=== PATIENT | female | born 1945 | race Caucasian/White ===

== ENCOUNTER → 2017-10-21 09:14 | Outpatient (CLI) | payer MEDICARE, OTHER, SELFPAY ==
--- NOTE | 2017-10-21 09:23 | CA_ITS ---
PROCEDURE: 2-D M-mode and color Doppler study INDICATIONS FOR THE TEST: Chest pain COPD Heart Murmur Tobacco Smoking Palpitations Fatigue Syncope Edema HypertensionXDiabetes Mellitus Rheumatic Fever SOBXDOE Obesity HyperlipidemiaX Family History HD Additional History AF PATIENT INFORMATION HEIGHT: 63 WEIGHT:144 GENDER: Female B/P:147/89 2-D/M-MODE INTERPRETATION: 2-D MEASUREMENTS OBSERVED VALUES IN CMS Right Ventricular Dimension (RVDd) 1.0 Interventricular Septum (Thickness)(IVsd) .8 Left Ventricular Internal Dimensions(LVIDd) 5.5 Left Ventricular Posterior Wall (Thickness)(LVPWd) .7 Aortic Root 4.2 Aortic Cusp Separation 2.0 Left Atrial Dimensions (LAD) 3.4 2D 1. Left atrium is mildly enlarged, left ventricle is normal size, there is no concentric left ventricular hypertrophy, visually estimated ejection fraction 55% with no obvious regional wall motion abnormality. 2. The right atrium and right ventricle are normal size and contractility. 3. The aortic valve is thickened and calcified leaflet continue to display good mobility. 4. The mitral and tricuspid valve leaflets are minimally thickened. 5. The pulmonic valve is poorly visualized. 6. No significant pericardial effusion noted. DOPPLER INTERROGATION: Doppler interrogation of the aortic, mitral and tricuspid valvular presence of mild aortic, mild mitral and tricuspid regurgitation, tricuspid and jet velocity insufficient for calculation of the right ventricular systolic pressure, grade 1 diastolic dysfunction seen without tissue Doppler evidence of raised left atrial pressure. CONCLUSION: 1. Mildly enlarged left atrium, normal left ventricular size, visually estimated ejection fraction 55% with no obvious regional wall motion abnormality, grade 1 diastolic dysfunction seen without tissue Doppler evidence of raised left atrial pressure. 2. Thickened and calcified aortic valve without aortic stenosis, mild aortic, mitral and tricuspid regurgitation. 3. No significant pericardial effusion noted.
== END ==
PROVIDERS: PCP Internal Medicine; Visit Provider Internal Medicine
DX: R06.02 Shortness of breath (principal)
CPT/HCPCS: 93306

== ENCOUNTER → 2019-01-15 13:29 | Outpatient (CLI) | payer MEDICARE, OTHER, SELFPAY ==
--- NOTE | 2019-01-15 13:32 | CA_ITS ---
PROCEDURE: 2-D M-mode and color Doppler study INDICATIONS FOR THE TEST: Chest pain COPD Heart Murmur Tobacco Smoking Palpitations Fatigue Syncope Edema Hypertension+Diabetes Mellitus Rheumatic Fever SOB+WALLS Obesity Hyperlipidemia+ Family History HD Additional History PATIENT INFORMATION HEIGHT: 63 WEIGHT:133 GENDER: Female B/P:124/83 2-D/M-MODE INTERPRETATION: 2-D MEASUREMENTS OBSERVED VALUES IN CMS Right Ventricular Dimension (RVDd) Interventricular Septum (Thickness)(IVsd) 1.1 Left Ventricular Internal Dimensions(LVIDd) 3.1 Left Ventricular Posterior Wall (Thickness)(LVPWd) 1.3 Aortic Root 3.8 Aortic Cusp Separation 2.1 Left Atrial Dimensions (LAD) 2.8 2D 1. Left atrium is mildly enlarged, left ventricle is normal size, mild concentric left ventricular hypertrophy, visually estimated ejection fraction 55% with no regional wall motion abnormality. 2. The right atrium and right ventricle are normal size and contractility. 3. The aortic valve is thickened and calcified leaflet continue to display mobility. The aortic root is mildly enlarged 4. The mitral and tricuspid valve leaflets are minimally thickened . 5. The pulmonic valve is poorly visualized. 6. No significant pericardial effusion noted. DOPPLER INTERROGATION: Doppler interrogation of the aortic, mitral and tricuspid valvular presence of moderate aortic, mild mitral and tricuspid regurgitation, tricuspid regurgitation jet velocity is inadequate for calculation of the right ventricular systolic pressure, grade 1 diastolic dysfunction seen without tissue Doppler evidence of raised left atrial pressure. CONCLUSION: 1. Mildly enlarged left atrium, normal left ventricular size, mild concentric left ventricular hypertrophy, visually estimated ejection fraction of 55% with no regional wall motion abnormality, grade 1 diastolic dysfunction seen without tissue Doppler evidence of raised left atrial pressure. 2. Moderate aortic, mild mitral and tricuspid regurgitation 3. No significant pericardial effusion noted.
== END ==
PROVIDERS: PCP Internal Medicine; Visit Provider Nurse Practitioner Family
DX: E78.5 Hyperlipidemia, unspecified (principal); I11.9 Hypertensive heart disease without heart failure; I34.0 Nonrheumatic mitral (valve) insufficiency; I35.1 Nonrheumatic aortic (valve) insufficiency; I45.10 Unspecified right bundle-branch block; I48.2 Chronic atrial fibrillation; R06.02 Shortness of breath
CPT/HCPCS: 93225; 93226; 93306

== ENCOUNTER → 2020-12-16 10:40 | Outpatient (CLI) | payer MEDICARE, OTHER, SELFPAY | PROVIDERS: PCP Internal Medicine; Visit Provider Urology | DX: E78.2 Mixed hyperlipidemia (principal); I10 Essential (primary) hypertension; I11.9 Hypertensive heart disease without heart failure; I35.1 Nonrheumatic aortic (valve) insufficiency; I48.0 Paroxysmal atrial fibrillation; R06.02 Shortness of breath | CPT/HCPCS: 93306 ==

== ENCOUNTER → 2022-01-21 10:48 | Outpatient (CLI) | payer MEDICARE, OTHER, SELFPAY ==
--- NOTE | 2022-01-21 10:49 | CA_ITS ---
APPROVED REPORT EXAM: Comprehensive 2D, Doppler, and color-flow Echocardiogram Outside Sales Inspector: Flores Tim, RCS, RVS Ht: 5 ft 4 in Wt: 133lbs BSA: 1.64 BP: 140/95 mmHg Indications: abn ekg, SOA, Palpitiaions, HTN, HLD, AI, MR Echo Enhancing Agent Comments: overriding Aorta 2D Dimensions LVDs 1.68 cm LA Volume 72.50 mL Aortic Root 0.00 cm LA Volume Index 44.20 mL/m2 (M/F) 16-34 Left Atrium 3.98 cm LVOT 1.91 cm (M/F) 1.5-2.5 Ascending Aorta 3.18 cm M-Mode Dimensions RVDd 0.95 cm (0.9-2.6) LA Diam 3.37 cm (1.9-4.0) LVDd 5.67 cm (3.5-5.7) Ao Diam 4.00 cm (2.0-3.7) LVDs 3.56 cm (3.5-5.7) IVSd 1.02 cm (0.6-1.1) PWd 0.95 cm (0.6-1.1) EF (Teich) 66.50% FS 37.20% EDV (Teich) 158.10 mL TAPSE 1.79 (<1.7) ESV (Teich) 53.00 mL LV Diastology E Decel Time 193.00 (160-240 msec) E/A Ratio 0.83 MED E' 5.80 (< 7 cm/sec) MED A' 7.80 cm/s E'/MED E' Ratio 13.31 (>14) LAT E' 8.60 (<10 cm/sec) LAT A' 8.20 cm/s E/LAT E' Ratio 8.98 (>14) Aortic Valve LVOT Max 104.00 (70-110 cm/s) LVOT VTI 24.11 cm AoV Peak Trent. 131.00 (50-130 cm/s) AI PHT 706.00 ms AO Peak GR. 6.90 mmHg AO Mean GR. 3.90 (<5 mmHg) AO VTI 29.77 (18-25 cm) DAVID (VTI) 2.32 (2.5-4.5 cm2) Mitral Valve MV A Velocity 93.00 (40-130 cm/s) E/A Ratio 0.83 MV Decel. Time 193.00 (160-240 ms) MV Mean Gr. 1.20 (<2mmHg) MV PHT 57.00 ms Pulmonary Valve PV Peak Velocity 60.00 (50-150 cm/s) Tricuspid Valve TR P. Velocity 222.00 cm/s RAP Estimate 10.00 mmHg RVSP 29.70 mmHg Left Ventricle Left atrium is mildly enlarged, left ventricle is normal size, mild concentric left ventricular hypertrophy, estimated ejection fraction 55% with no regional wall motion abnormality, grade 1 diastolic dysfunction seen without tissue Doppler evidence of raise left atrial pressure. Right Ventricle Right atrium and right ventricle are mildly enlarged with normal contractility. Aortic Valve Aortic valve is thickened and calcified without aortic stenosis, there is mild aortic insufficiency. Mitral Valve Mitral valve is minimally thickened, there is mild mitral regurgitation. Tricuspid Valve Tricuspid valve grossly normal, there is mild tricuspid regurgitation, tricuspid regurgitation jet velocity is inadequate for calculation of the right ventricular systolic pressure. Pulmonic Valve Pulmonic valve is poorly visualized. Great Vessels Aortic root is normal size. Inferior vena cava is normal size with normal inspiratory collapse. Pericardium No significant pericardial effusion noted. Conclusion 1. Mild biatrial enlargement, normal left ventricular size, mild concentric left ventricular hypertrophy, estimated ejection fraction 55% with no regional wall motion abnormality, grade 1 diastolic dysfunction seen without tissue Doppler evidence of raise left atrial pressure. 2. Mildly enlarged right ventricle with normal contractility. 3. Mild aortic, mild mitral and tricuspid regurgitation. 4. No significant pericardial effusion. 5. Inferior vena cava is poorly visualized. Electronically signed by : Emory Gabriel MD 01/22/2022 16:42:12
== END ==
PROVIDERS: PCP Internal Medicine; Visit Provider Physician Assistant
DX: I35.1 Nonrheumatic aortic (valve) insufficiency (principal)
CPT/HCPCS: 93306

== ENCOUNTER → 2022-01-25 10:03 | Outpatient (CLI) | payer MEDICARE, OTHER, SELFPAY ==
[2022-01-25 10:32] LABS: Basophils # 0.1 K/mm3 (0-0.2); Basophils % 1.3 % (0.1-2.0); Eosinophils # 0.1 K/mm3 (0.0-0.4); Eosinophils % 2.6 % (0.1-12.0); Hematocrit 43.6 % (37.0-47.0); Hemoglobin 14.1 g/dL (12.2-16.2); Lymphocytes # 1.5 K/mm3 (0.7-4.5); Lymphocytes % 29.5 % (10-50); Mean Corpuscular HGB Conc 32.3 g/dL (31.8-35.4); Mean Corpuscular Hemoglobin 35.8 pg (27.0-31.2); Mean Platelet Volume 9.6 fl (7.4-10.4); Monocytes # 0.4 K/mm3 (0.1-1.0); Monocytes % 7.3 % (1.7-9.3); Neutrophils # 2.9 K/mm3 (1.8-7.8); Neutrophils % 59.3 % (37.0-80.0); Platelet Count 182 K/mm3 (142-424); Red Blood Count 3.93 M/mm3 (4.20-5.40); Red Cell Distribution Width 14.8 % (11.5-17.5); White Blood Count 4.9 K/mm3 (4.8-10.8)
[2022-01-25 11:29] LABS: Alanine Aminotransferase 48 U/L (12-78); Alkaline Phosphatase 90 U/L (38-126); Anion Gap 16.7 mEq/L (5-15); Aspartate Amino Transferase 81 U/L (14-36); Bilirubin,Direct 0.2 mg/dl (0.0-0.4); Bilirubin,Indirect 0.5 mg/dL (0.0-0.9); Bilirubin,Total 0.7 mg/dl (0.2-1.3); Bilirubin,Unconjugated 0.5 mg/dL (0.0-1.1); Blood Urea Nitrogen 14 mg/dl (7-17); Carbon Dioxide 21 mmol/L (22.0-30.0); Chloride 103 mmol/L (98-107); Chol/HDL Ratio 1.9 (1-3.5); Cholesterol 187 mg/dl (140-200); Estimated Glomerular Filt Rate 97 ml/min (>60); GFR (African American) 117 ML/MIN (>60); Glucose 82 mg/dl (74-100); HDL Cholesterol 96 mg/dl (40-60); Potassium 3.7 mmoL/L (3.5-5.1); Sodium 137 mmol/L (136-145); Total Protein,Serum 6.3 g/dl (6.3-8.2); Triglycerides 94 mg/dl (30-150); VLDL Cholesterol 19 mg/dL (0-40)
[2022-01-25 11:39] LABS: Direct LDL Cholesterol 71.32 mg/dL (100-129)
[2022-01-25 11:45] LABS: Free T4 (Free Thyroxine) 1.08 ng/dl (0.78-2.19)
[2022-01-25 11:59] LABS: Thyroid Stimulating Hormone 7.27 uIU/mL (0.465-4.68)
[2022-02-01 00:14] LABS: 1,25 Dihydroxy Vitamin D 37 pg/mL (.); 1,25-Dihydroxy, Vitamin D-2 <10 pg/mL (.); 1,25-Dihydroxy, Vitamin D-3 37 pg/mL (.)
== END ==
PROVIDERS: Visit Provider Internal Medicine
DX: E78.2 Mixed hyperlipidemia (principal); I11.9 Hypertensive heart disease without heart failure; I35.1 Nonrheumatic aortic (valve) insufficiency; I48.0 Paroxysmal atrial fibrillation
CPT/HCPCS: 36415; 80048; 80061; 80076; 82652; 84439; 84443; 85025

== ENCOUNTER → 2023-02-02 12:48 | Outpatient (CLI) | payer MEDICARE, OTHER, SELFPAY ==
[2023-02-02 16:41] LABS: Basophils % 0.8 % (0.1-2.0); Eosinophils # 0.2 K/mm3 (0.0-0.4); Eosinophils % 3.8 % (0.1-12.0); Hematocrit 45.1 % (37.0-47.0); Hemoglobin 14.1 g/dL (12.2-16.2); Lymphocytes # 1.2 K/mm3 (0.7-4.5); Lymphocytes % 30.2 % (10-50); Mean Corpuscular HGB Conc 31.3 g/dL (31.8-35.4); Mean Corpuscular Hemoglobin 33.7 pg (27.0-31.2); Mean Corpuscular Volume 107.6 fl (81-99); Mean Platelet Volume 9.9 fl (7.4-10.4); Monocytes # 0.4 K/mm3 (0.1-1.0); Monocytes % 9.5 % (1.7-9.3); Neutrophils # 2.3 K/mm3 (1.8-7.8); Neutrophils % 55.7 % (37.0-80.0); Platelet Count 181 K/mm3 (142-424); Red Blood Count 4.19 M/mm3 (4.20-5.40); Red Cell Distribution Width 15.7 % (11.5-17.5)
[2023-02-02 16:50] LABS: Alanine Aminotransferase 81 U/L (12-78); Albumin Level 3.8 g/dl (3.5-5.0); Albumin/Globulin Ratio 1.6 (1.1-1.8); Alkaline Phosphatase 90 U/L (38-126); Aspartate Amino Transferase 130 U/L (14-36); Bilirubin,Total 0.6 mg/dl (0.2-1.3); Blood Urea Nitrogen 14 mg/dl (7-17); Calcium 8.6 mg/dl (8.4-10.2); Carbon Dioxide 27 mmol/L (22.0-30.0); Chloride 101 mmol/L (98-107); Chol/HDL Ratio 3.6 (1-3.5); Cholesterol 263 mg/dl (140-200); Estimated Glomerular Filt Rate 81 ml/min (>60); GFR (African American) 98 ML/MIN (>60); Globulin 2.4 g/dL (1.3-3.2); Glucose 73 mg/dl (74-100); HDL Cholesterol 74 mg/dl (40-60); Sodium 137 mmol/L (136-145); Total Protein,Serum 6.2 g/dl (6.3-8.2); Triglycerides 142 mg/dl (30-150); VLDL Cholesterol 28 mg/dL (0-40)
[2023-02-02 17:01] LABS: Direct LDL Cholesterol 164.99 mg/dL (100-129)
[2023-02-02 17:20] LABS: Thyroid Stimulating Hormone 6.43 uIU/mL (0.465-4.68)
[2023-02-04 18:44] LABS: Vitamin B12 255 pg/mL (239-931)
== END ==
PROVIDERS: PCP Internal Medicine; Visit Provider Internal Medicine
DX: I48.0 Paroxysmal atrial fibrillation (principal); I35.1 Nonrheumatic aortic (valve) insufficiency; E03.9 Hypothyroidism, unspecified; E78.5 Hyperlipidemia, unspecified; I10 Essential (primary) hypertension; M16.11 Unilateral primary osteoarthritis, right hip
CPT/HCPCS: 80053; 80061; 82607; 84443; 85025

== ENCOUNTER → 2023-02-14 07:10 | Outpatient (CLI) | payer MEDICARE, OTHER, SELFPAY | PROVIDERS: PCP Internal Medicine; Visit Provider Physician Assistant | DX: I11.9 Hypertensive heart disease without heart failure; I34.0 Nonrheumatic mitral (valve) insufficiency; I35.1 Nonrheumatic aortic (valve) insufficiency; I45.10 Unspecified right bundle-branch block; I48.0 Paroxysmal atrial fibrillation; R06.02 Shortness of breath; R42 Dizziness and giddiness | CPT/HCPCS: 78452; 93017; A9502; J2785 ==

== ENCOUNTER → 2023-08-08 14:36 | Outpatient (CLI) | payer MEDICARE, OTHER, SELFPAY ==
[2023-08-08 14:54] LABS: Reticulocyte % (Auto) 1.2 % (0.9-3.2)
[2023-08-08 15:27] LABS: Alanine Aminotransferase 61 U/L (12-78); Albumin Level 3.7 g/dl (3.5-5.0); Albumin/Globulin Ratio 1.4 (1.1-1.8); Alkaline Phosphatase 119 U/L (38-126); Anion Gap 19.7 mEq/L (5-15); Aspartate Amino Transferase 131 U/L (14-36); Bilirubin,Total 0.6 mg/dl (0.2-1.3); Blood Urea Nitrogen 10 mg/dl (7-17); Calcium 8.7 mg/dl (8.4-10.2); Carbon Dioxide 22 mmol/L (22.0-30.0); Chloride 103 mmol/L (98-107); Chol/HDL Ratio 2.3 (1-3.5); Cholesterol 190 mg/dl (140-200); Estimated Glomerular Filt Rate 81 ml/min (>60); GFR (African American) 98 ML/MIN (>60); Globulin 2.6 g/dL (1.3-3.2); Glucose 79 mg/dl (74-100); HDL Cholesterol 84 mg/dl (40-60); Potassium 3.7 mmoL/L (3.5-5.1); Sodium 141 mmol/L (136-145); Total Protein,Serum 6.3 g/dl (6.3-8.2); Triglycerides 101 mg/dl (30-150); VLDL Cholesterol 20 mg/dL (0-40)
[2023-08-08 15:38] LABS: Direct LDL Cholesterol 98.81 mg/dL (100-129)
[2023-08-08 16:32] LABS: Folate 3.87 ng/mL; Vitamin B12 768 pg/mL (239-931)
== END ==
PROVIDERS: PCP Internal Medicine; Visit Provider Internal Medicine
DX: I10 Essential (primary) hypertension (principal); I48.91 Unspecified atrial fibrillation; I34.0 Nonrheumatic mitral (valve) insufficiency; I35.1 Nonrheumatic aortic (valve) insufficiency; E78.5 Hyperlipidemia, unspecified
CPT/HCPCS: 80053; 80061; 82607; 82746; 85044

== ENCOUNTER 2024-02-07 09:43 | Outpatient (CLI) | payer MEDICARE, OTHER, SELFPAY ==
--- NOTE | 2024-02-07 10:00 | XR_ITS ---
FINAL REPORT CLINICAL HISTORY: NECK PAIN FINDINGS: CERVICAL SPINE Five views demonstrate no acute fracture. There is minimal spondylolisthesis of L4 on 5 with mild disc space narrowing at this level. The neural foramina are adequately patent. There is no malalignment. IMPRESSION: Degenerative change at L4-5. Reviewed, Interpreted and Dictated by Jacinto Palomares MD Transcribed by Meg Santana Authenticated and [facility]
== END 2024-02-07 23:59 | disposition home or self-care (01) ==
PROVIDERS: PCP Internal Medicine; Visit Provider Internal Medicine
DX: M54.2 Cervicalgia (principal); M43.6 Torticollis
CPT/HCPCS: 72050

== ENCOUNTER 2024-02-07 09:56 | Outpatient (CLI) | payer MEDICARE, OTHER, SELFPAY ==
[2024-02-07 10:27] LABS: Basophils % 0.9 % (0.1-2.0); Eosinophils # 0.2 K/mm3 (0.0-0.4); Hematocrit 44.5 % (37.0-47.0); Hemoglobin 14.5 g/dL (12.2-16.2); Lymphocytes # 1.2 K/mm3 (0.7-4.5); Lymphocytes % 27.4 % (10-50); Mean Corpuscular HGB Conc 32.6 g/dL (31.8-35.4); Mean Corpuscular Hemoglobin 35.4 pg (27.0-31.2); Mean Corpuscular Volume 108.5 fl (81-99); Mean Platelet Volume 10.1 fl (7.4-10.4); Monocytes # 0.3 K/mm3 (0.1-1.0); Neutrophils # 2.6 K/mm3 (1.8-7.8); Neutrophils % 60.7 % (37.0-80.0); Platelet Count 215 K/mm3 (142-424); Red Cell Distribution Width 15.1 % (11.5-17.5); White Blood Count 4.3 K/mm3 (4.8-10.8)
[2024-02-07 10:58] LABS: Alanine Aminotransferase 44 U/L (12-78); Albumin Level 3.4 g/dl (3.5-5.0); Albumin/Globulin Ratio 1.3 (1.1-1.8); Alkaline Phosphatase 123 U/L (38-126); Anion Gap 12.3 mEq/L (5-15); Aspartate Amino Transferase 112 U/L (14-36); Bilirubin,Total 0.8 mg/dl (0.2-1.3); Blood Urea Nitrogen 13 mg/dl (7-17); Calcium 8.9 mg/dl (8.4-10.2); Carbon Dioxide 26 mmol/L (22.0-30.0); Chloride 103 mmol/L (98-107); Chol/HDL Ratio 6.1 (1-3.5); Cholesterol 221 mg/dl (140-200); Estimated Glomerular Filt Rate 96 ml/min (>60); GFR (African American) 117 ML/MIN (>60); Globulin 2.6 g/dL (1.3-3.2); Glucose 90 mg/dl (74-100); HDL Cholesterol 36 mg/dl (40-60); Potassium 3.3 mmoL/L (3.5-5.1); Sodium 138 mmol/L (136-145); Triglycerides 172 mg/dl (30-150); VLDL Cholesterol 34 mg/dL (0-40)
[2024-02-07 11:02] LABS: Erythrocyte Sedimentation Rate 8 mm/hr (0-30)
[2024-02-07 11:09] LABS: Direct LDL Cholesterol 142.03 mg/dL (100-129)
[2024-02-07 11:28] LABS: Thyroid Stimulating Hormone 5.56 uIU/mL (0.465-4.68)
[2024-02-08 19:33] LABS: Vitamin B12 472 pg/mL (239-931)
== END 2024-02-07 23:59 | disposition home or self-care (01) ==
LOC: LAB.DROPOF 09:57
PROVIDERS: PCP Internal Medicine; Visit Provider Internal Medicine
DX: I48.91 Unspecified atrial fibrillation (principal); I34.0 Nonrheumatic mitral (valve) insufficiency; I35.1 Nonrheumatic aortic (valve) insufficiency; I10 Essential (primary) hypertension; E78.5 Hyperlipidemia, unspecified; E03.9 Hypothyroidism, unspecified; G43.809 Other migraine, not intractable, without status migrainosus; M54.2 Cervicalgia
CPT/HCPCS: 72050; 80053; 80061; 82607; 82746; 84443; 85025; 85651

== ENCOUNTER 2024-04-10 15:47 | Outpatient (CLI) | payer MEDICARE, OTHER, SELFPAY ==
--- NOTE | 2024-04-10 15:48 | MR_ITS ---
FINAL REPORT TECHNIQUE: Multiplanar MR without contrast CLINICAL HISTORY: Worsening cervicalgia. stiff neck. FINDINGS: There is mild chronic compression fracture of T3. There are abnormal signal changes of the odontoid process which are nonspecific. Differential considerations would include atypical hemangioma, marrow edema, or much less likely metastatic disease. CT correlation is recommended to better assess the bony structure. Limited images of the posterior fossa are unremarkable. Alignment is normal. Cervical spinal cord shows normal signal and contour. C2-3: Mild annular disc bulge. C3-4: Mild annular disc bulge. C4-5: Mild annular disc bulge. C5-6: Mild annular disc bulge. C6-7: Mild annular disc bulge. C7-T1: Minimal annular disc bulge. IMPRESSION: Abnormal signal changes of the odontoid process. Recommend CT correlation follow-up. Mild chronic T3 compression fracture. Mild diffuse degenerative changes. Reviewed, Interpreted and Dictated by Leandro Castillo MD Transcribed by Meg Santana Authenticated and . [facility]
== END 2024-04-10 23:59 | disposition home or self-care (01) ==
LOC: RAD 15:48
PROVIDERS: PCP Internal Medicine; Visit Provider Internal Medicine
DX: M54.2 Cervicalgia (principal); M62.838 Other muscle spasm
CPT/HCPCS: 72141

== ENCOUNTER 2024-04-18 06:40 | Outpatient (CLI) | payer MEDICARE, OTHER, SELFPAY ==
--- NOTE | 2024-04-18 06:44 | CT_ITS ---
FINAL REPORT CLINICAL HISTORY: Neck pain, abnormal dens on MRI COMPARISON: MRI dated 04/10/2024 FINDINGS: Axial CT images of the cervical spine were obtained without contrast. Sagittal and coronal reformatted images were also obtained. This study was performed with techniques to keep radiation doses as low as reasonably achievable (ALARA). Individualized dose reduction techniques using automated exposure control or adjustment of mA and/or kV according to the patient's size were employed. There is no evidence of fracture. The bony alignment is normal. There are mild to moderate degenerative changes with vacuum phenomenon at C4-5. There is a small erosion along the anterior border of the dens. Soft tissue surrounds the dens. This is nonspecific and can be seen with inflammatory arthritis or CPPD. There is no evidence of canal stenosis. Limited images of the upper thorax are unremarkable. IMPRESSION: Degenerative changes with no acute fracture. Small erosion along the anterior border of the dens with soft tissue surrounding the dens. This is nonspecific and can be seen with inflammatory arthritis or CPPD Reviewed, Interpreted and Dictated by Erick Chirinos III, MD Transcribed by Steph Yeager Authenticated and [facility]
--- NOTE | 2024-04-18 06:44 | CT_ITS ---
FINAL REPORT CLINICAL HISTORY: Lumbar back pain FINDINGS: Axial imaging of the lumbar spine was obtained without contrast. Sagittal and coronal reformatted images were also obtained and reviewed.This study was performed with techniques to keep radiation doses as low as reasonably achievable (ALARA). Individualized dose reduction techniques using automated exposure control or adjustment of mA and/or kV according to the patient's size were employed. There is a mild L2 superior endplate compression fracture of uncertain age. There is 30% loss of anterior height. Osteopenia is noted. There are mild degenerative changes. Multilevel disc bulges are noted. There is vacuum phenomenon at L5-S1. There is a large amount of retained stool in the colon, particularly the rectum, worrisome for fecal impaction. IMPRESSION: Age indeterminant L2 superior endplate compression fracture with approximately 30% loss of anterior height. If indicated, MRI may be beneficial. Degenerative changes in the lumbar spine. Findings worrisome for fecal impaction. Reviewed, Interpreted and Dictated by Erick Chirinos III, MD Transcribed by Steph Yeager Authenticated and [facility]
== END 2024-04-18 23:59 | disposition home or self-care (01) ==
LOC: RAD 06:40
PROVIDERS: PCP Internal Medicine; Visit Provider Internal Medicine
DX: M47.817 Spondylosis without myelopathy or radiculopathy, lumbosacral region (principal); M54.2 Cervicalgia; M62.838 Other muscle spasm
CPT/HCPCS: 72125; 72131

== ENCOUNTER 2024-05-15 14:54 | Emergency (ER) | payer MEDICARE, OTHER, SELFPAY ==
[2024-05-15 14:55] VITALS: BP 128/85; PULSE 69; RESP 16; TEMP 36.4; O2SAT 98; BMI 18.6
--- NOTE | 2024-05-15 15:27 | CT_ITS ---
FINAL REPORT TECHNIQUE: Axial images were obtained of the cervical spine by computed tomography. Coronal and sagittal reconstruction process performed. This study was performed with techniques to keep radiation doses as low as reasonably achievable (ALARA). Individualized dose reduction techniques using automated exposure control or adjustment of mA and/or kV according to the patient''s size were employed. CLINICAL HISTORY: fall COMPARISON: 04/18/2024 FINDINGS: No acute fracture is identified. There is moderately advanced disc space narrowing at C4-5 with grade 1 spondylolisthesis of C4 on 5. There is no significant disc bulge or protrusion. There is no malalignment. The facets are properly aligned. IMPRESSION: Moderately advanced changes of degenerative disc disease at C4-5 with grade 1 spondylolisthesis of C4 on 5. Findings are similar to previous. Reviewed, Interpreted and Dictated by Jacinto Palomares MD Transcribed by Meg Santana Authenticated and [facility]
--- NOTE | 2024-05-15 15:27 | CT_ITS ---
FINAL REPORT TECHNIQUE: Axial imaging of the head was obtained without contrast. This study was performed with techniques to keep radiation doses as low as reasonably achievable, (ALARA). Individualized dose reduction techniques using automated exposure control or adjustment of mA and/or kV according to the patient''s size were employed. CLINICAL HISTORY: fall FINDINGS: There is moderate atrophy. There are extensive changes of chronic microvascular ischemia. There is no evidence of hemorrhage. No masses are identified. No extra-axial fluid is seen. The paranasal sinuses are well aerated. There is no acute osseous abnormality. IMPRESSION: Atrophy and extensive changes of chronic microvascular ischemia. Reviewed, Interpreted and Dictated by Jacinto Palomares MD Transcribed by Meg Santana Authenticated and [facility]
--- NOTE | 2024-05-15 15:36 | ECG_ITS ---
APPROVED REPORT Exam: Resting ECG HR:65 bpm ECG Measurements Heart Rate 65 AXES QRSd 160 QRS -86 QT 479 T -1 QTc 491 Conclusion ATRIAL FIBRILLATION WITH ABERRANT CONDUCTION OR VENTRICULAR PREMATURE COMPLEXES LEFT AXIS DEVIATION [QRS AXIS < -30] RIGHT BUNDLE BRANCH BLOCK [120+ ms QRS DURATION, UPRIGHT V1, 40+ ms S IN I/aVL/V4/V5/V6] POSSIBLE ANTERIOR MYOCARDIAL INFARCTION , OF INDETERMINATE AGE [30 ms Q WAVE IN V3/V4, OR R < 0.2 mV IN V4] ABNORMAL ECG Electronically signed by : TRINA DONG, 05/15/2024 21:54:58
[2024-05-15 15:38] VITALS: BP 108/71; BP 109/67; BP 89/51; PULSE 60; PULSE 69; PULSE 88
[2024-05-15 15:39] LABS: Albumin Level 4.1 g/dl (3.5-5.0); Chloride 98 mmol/L (98-107)
--- NOTE | 2024-05-15 15:39 | ED_ITS ---
Discharge Plan Disposition Patient Disposition: Home, Self-Care Condition: Good Prescriptions Prescriptions: New levothyroxine 100 mcg capsule 100 mcg PO DAILY Qty: 30 2RF No Action aspirin [Adult Low Dose Aspirin] 81 mg tablet,delayed release (DR/EC) 81 mg PO QDAY rosuvastatin [Crestor] 20 mg tablet 20 mg PO ONCE Emgality Pen 120 mg/mL pen injector 120 mg SQ QMONTH levothyroxine 112 mcg tablet 112 mcg PO DAILY Patient Comments: TAKE 1 TABLET BY MOUTH ONCE DAILY flecainide 100 mg tablet 50 mg PO BID furosemide 20 mg tablet 20 mg PO DAILY PRN hydrocodone-acetaminophen 7.5-325 mg tablet 7.5 tab PO DAILY Patient Comments: TAKE 1 TABLET BY MOUTH EVERY 8 HOURS alprazolam [Xanax] 0.25 mg tablet 0.25 mg PO DAILY PRN hydrocodone-acetaminophen 5-325 mg tablet 1 tab PO Q8H PRN (Reason: pain) Qty: 14 0RF cyclobenzaprine 5 mg tablet 5 mg PO QHS PRN (Reason: muscle spasm) Qty: 30 1RF spironolactone 50 mg tablet See Rx Instructions .ROUTE .COMPLEX Qty: 90 0RF Dose Instruction: Take 1 tablet by mouth once daily Rx Instructions: Take 1 tablet by mouth once daily bisoprolol fumarate 10 mg tablet See Rx Instructions .ROUTE .COMPLEX Qty: 30 0RF Dose Instruction: Take 1 tablet by mouth once daily Rx Instructions: Take 1 tablet by mouth once daily hydrochlorothiazide 12.5 mg tablet 12.5 mg PO DAILY Qty: 90 1RF ezetimibe 10 mg tablet 10 mg PO DAILY Qty: 90 1RF famotidine 20 mg tablet 20 mg PO BID Qty: 180 1RF Referrals Follow up/Referrals: Almas Park MD [Primary Care Provider] - See instructions Activity Restrictions/Add. Instructions Additional Instructions/Restrictions: You were evaluated in the emergency department today. At this time, we feel your symptoms are likely related to medications. Please stop taking the hydrochlorothiazide at home your thyroid levels are too high today, so we are lowering your dose of levothyroxine. Please cigar packer and picker this new prescription and take daily. Make sure that you do not take your previous thyroid medication dosage with this. It is important to only take 1. Follow-up closely with your primary care provider over the next 24 to 48 hours for reassessment to make sure that you are still doing well. If you continue to have symptoms of lightheadedness with standing, general weakness, and fatigue, they may want to consider lowering the dosages of your heart rate medications, including flecainide and bisoprolol. Return to the emergency department right away for new or worsening symptoms. Clinical Impressions Clinical Impression: Factitious hyperthyroidism, Orthostatic hypotension, ZEINA (acute kidney injury), General weakness Instructions Patient Instructions: DI for Orthostatic Hypotension, DI for Hyperthyroidism, DI for Acute Kidney Injury Print Language Print Language: Venezuelan Discharge ED Provider: Betty Urrutia General Adult HPI General Chief complaint: Weakness Stated complaint: weakness, hyertension Time Seen by Provider: 05/15/24 15:07 Mode of Arrival: Wheelchair Source of Information: Patient Limitations: No Limitations Description of Symptoms (Recalled from ER Triage Doc. by RN): Patient reports having low blood pressure at home. States that she has been weak with balance issues as well. History of Present Illness HPI narrative: This patient is a 78-year-old female with a history of hypertension, hypertensive heart disease, mitral valve regurgitation, atrial fibrillation, aortic valve regurgitation, hyperlipidemia, and chronic neck and back pain presenting to the emergency department for evaluation with concern for lightheadedness, general weakness, and low blood pressures at home. Patient notes when she goes from sitting to standing or from lying to sitting, her blood pressure tanks and she feels very lightheaded. Her blood pressure was taken to physical therapy and was noted to be 70/30 by the physical therapist in the 90 systolic by her daughter, who is a nurse practitioner. Given this, they brought her in. Patient denies any recent illnesses aside from a urinary tract infection 3 weeks ago that she completed treatment for. She is been doing well since then. She does note that she was recently started on hydrochlorothiazide by an ER doctor because she had high blood pressures in the emergency department. This seems to have all started after starting the hydrochlorothiazide. She is also on flecainide and bisoprolol given her chronic history of hypertension and atrial fibrillation. She does report that she believes that her bisoprolol was increased. She was started on Xarelto for her atrial fibrillation, but family reports that she is not taking it Related Data Home Medications ?Medication ?Instructions ?Recorded ?Confirmed aspirin 81 mg tablet,delayed 81 mg PO QDAY 10/17/17 04/17/24 release (Adult Low Dose Aspirin) rosuvastatin 20 mg tablet (Crestor) 20 mg PO ONCE 10/17/17 04/17/24 galcanezumab-gnlm 120 mg/mL 120 mg SQ QMONTH 12/23/20 04/17/24 subcutaneous pen injector (Emgality Pen) alprazolam 0.25 mg tablet (Xanax) 0.25 mg PO DAILY PRN 01/24/23 04/17/24 flecainide 100 mg tablet 50 mg PO BID 02/28/23 04/17/24 levothyroxine 112 mcg tablet 112 mcg PO DAILY 02/28/23 04/17/24 furosemide 20 mg tablet 20 mg PO DAILY PRN 04/17/24 04/17/24 hydrocodone 7.5 mg-acetaminophen 7.5 tab PO DAILY 04/17/24 04/17/24 325 mg tablet Previous Rx's ?Medication ?Instructions ?Recorded spironolactone 50 mg tablet See Rx Instructions .Route 12/20/22 .COMPLEX #90 tabs bisoprolol fumarate 10 mg tablet See Rx Instructions .Route 03/27/24 .COMPLEX #30 tabs cyclobenzaprine 5 mg tablet 5 mg PO QHS PRN muscle spasm #30 04/03/24 tabs hydrocodone 5 mg-acetaminophen 325 1 tab PO Q8H PRN pain #14 tabs 04/03/24 mg tablet hydrochlorothiazide 12.5 mg tablet 12.5 mg PO DAILY #90 tabs 05/07/24 ezetimibe 10 mg tablet 10 mg PO DAILY #90 tabs 05/08/24 famotidine 20 mg tablet 20 mg PO BID #180 tabs 05/11/24 levothyroxine 100 mcg capsule 100 mcg PO DAILY #30 caps 05/15/24 Allergies Allergy/AdvReac Type Severity Reaction Status Date / Time morphine [MORPHINE] Allergy Mild HEART BEAT Verified 04/17/24 14:38 SLOWS PFSH PFSH Disclaimer: The information contained in this section may have been updated after the patient was seen, as this information can be updated by other users. Medical History HLD (hyperlipidemia) Right bundle branch block Aortic valve regurgitation Mitral valve regurgitation Hypertensive heart disease Afib Surgical History H/O total hysterectomy Hx of colonoscopy Family History Other Cancer Heart attack Social History Smoking Status: Never smoker alcohol intake: never substance use type: denies use current occupational status: retired Travel in the last 8 weeks: Inside the [place] ROS Obtained: Yes All systems reviewed & no additional complaints except as documented Physical Exam General General appearance: alert and in no apparent distress Head Head exam: atraumatic and normocephalic Eye Eye exam: Present normal appearance, PERRL and EOMI ENT ENT exam: Present normal exam, normal oropharynx, mucous membranes moist and normal external ear exam Neck Neck exam: Present normal inspection, full ROM and trachea midline; Absent tenderness Chest Chest inspection: Present normal inspection and symmetric chest wall rise; Absent tenderness Respiratory Respiratory exam: Present normal lung sounds bilaterally; Absent respiratory distress, wheezes, stridor or accessory muscle use Cardiovascular Cardiovascular exam: Present regular rate and normal rhythm Abdominal Exam Abdominal exam: Present soft; Absent distention, tenderness or guarding Extremities Exam Extremities exam: Present normal inspection, full ROM and normal capillary refill; Absent tenderness or edema Back Exam Back exam: Present normal inspection and full ROM; Absent tenderness Neurological Exam Neurological exam: Present alert, oriented X3, CN II-XII intact and normal gait; Absent motor sensory deficit Psychiatric Psychiatric exam: Present normal affect and normal mood Skin Skin exam: Present warm and dry Medical Decision Making Medical Records Medical records reviewed: Yes I reviewed the patient's medical records. Sandip Inquiry Pt receiving controlled substance: No Vital Signs: 05/15/24 14:55 05/15/24 15:38 05/15/24 17:38 Temperature 97.6 F Temperature Source Oral Pulse Rate Pulse Rate [Orthostatic Lying Left Radial] 69 64 Pulse Rate [Orthostatic Sitting Left Radial] 60 64 Pulse Rate [Orthostatic Standing Left Radial] 88 66 Pulse Rate [Radial] 69 Respiratory Rate 16 Blood Pressure Blood Pressure [Orthostatic Lying Left Arm] 109/67 L 101/70 L Blood Pressure [Orthostatic Sitting Left Arm] 108/71 L 129/80 Blood Pressure [Orthostatic Standing Left Arm] 89/51 L 140/81 Blood Pressure [Right Arm] 128/85 Blood Pressure Mean [Right Arm] 99 Blood Pressure Source [Right Arm] Automatic Cuff Blood Pressure Position [Right Arm] Sitting 02 Sat by Pulse Oximetry 98 Oxygen Delivery Method Room Air 05/15/24 18:00 05/15/24 18:30 05/15/24 18:46 Temperature 98.0 F Temperature Source Oral Pulse Rate 68 71 74 Pulse Rate [Orthostatic Lying Left Radial] Pulse Rate [Orthostatic Sitting Left Radial] Pulse Rate [Orthostatic Standing Left Radial] Pulse Rate [Radial] Respiratory Rate 20 Blood Pressure 133/83 151/86 H 157/84 H Blood Pressure [Orthostatic Lying Left Arm] Blood Pressure [Orthostatic Sitting Left Arm] Blood Pressure [Orthostatic Standing Left Arm] Blood Pressure [Right Arm] Blood Pressure Mean [Right Arm] Blood Pressure Source [Right Arm] Blood Pressure Position [Right Arm] 02 Sat by Pulse Oximetry 97 97 Oxygen Delivery Method Room Air Room Air Room Air Lab Data Lab results reviewed: Yes I reviewed the patient's lab results. Lab Results 05/15/24 15:10: WBC 7.1, RBC 4.31, Hgb 14.7, Hct 44.8, MCV 103.8 H, MCH 34.1 H, MCHC 32.8, RDW 15.3, Plt Count 186, MPV 10.0, Neut % (Auto) 71.7, Lymph % (Auto) 16.6, [place] % (Auto) 8.8, Eos % (Auto) 2.3, Baso % (Auto) 0.6, Neut # (Auto) 5.1, Lymph # (Auto) 1.2, [place] # (Auto) 0.6, Eos # (Auto) 0.2, Baso # (Auto) 0.0, S odium 134 L, Potassium 4.3, Chloride 98, Carbon Dioxide 27, Anion Gap 13.3, BUN 22 H, Creatinine 1.10 H, Estimated Creat Clear 31, Estimated GFR 48 L, Est GFR ( Amer) 58 L, Glucose 124 H, Calcium 9.8, Phosphorus 3.8, Magnesium 1.4 L , Total Bilirubin 0.7, AST 55 H, ALT 40, Alkaline Phosphatase 80, NT-Pro-B Natriuret Pep 962 H, Total Protein 7.0, Albumin 4.1, Globulin 2.9, Albumin/Globulin Ratio 1.4, TSH 0.19 L, Thyroxine (T4) 19.9 H 05/15/24 15:10 05/15/24 15:10 Orders (Tests/Meds): ED MEDICATIONS Discontinued Medications Generic Name Dose Route Start Last Admin Trade Name Adalid PRN Reason Stop Dose Admin Lactated Ringer's 1,000 mls @ 999 mls/hr 05/15/24 15:55 05/15/24 16:04 Lactated Ringer's 1000 Ml Bag IV 05/15/24 16:55 999 mls/hr .Q1H1M ONE Administration Magnesium Sulfate 2 gm in 50 mls @ 50 mls/hr 05/15/24 15:55 05/15/24 16:03 Magnesium Sulfate 2gm/50ml Premix IV 05/15/24 16:54 50 mls/hr ONCE ONE Administration Lactated Ringer's 1,000 mls @ 999 mls/hr 05/15/24 18:18 Lactated Ringer's 1000 Ml Bag IV 05/15/24 19:18 .Q1H1M ONE Sodium Chloride 10 ml 05/15/24 15:11 Sodium Chloride 0.9% 10ml Flush Syringe IV 06/14/24 15:10 NEEDED PRN Maintain IV Site ORDERS Category Date Time Status CT cervical spine wo con Stat Cat Scan 05/15/24 15:[address] head/brain wo con Stat Cat Scan 05/15/24 15:27 Taken BNP [NT Pro Brain Natriuretic Pep.] Stat Lab 05/15/24 15:10 Completed CBC w/Auto Diff [Complete Blood Count Auto Diff] Stat Lab 05/15/24 15:10 Completed CMP [Comprehensive Metabolic Panel] Stat Lab 05/15/24 15:10 Completed MAG [Magnesium] Stat Lab 05/15/24 15:10 Completed Phosphorous Stat Lab 05/15/24 15:10 Completed T4 (Thyroxine) Stat Lab 05/15/24 15:10 Completed TSH [Thyroid Stimulating Hormone] Stat Lab 05/15/24 15:10 Completed ECG Data Tracing #1: I reviewed this ECG and interpreted as documented below: Atrial fibrillation with ventricular rate of 65 bpm. Left axis deviation noted. Right bundle branch block noted. Interventricular conduction delay noted. PVC noted. No acute ST changes concerning for ischemia. ECG initial impression date: 05/15/24 ECG initial impression time: 15:38 Medical Decision Narrative: In summary, this patient is a 78-year-old female presenting to the Emergency Department for evaluation of general weakness, lightheadedness, and low blood pressure readings at home. Differential diagnoses considered include but are not limited to medication adverse reaction given that she was recently started on hydrochlorothiazide, dehydration, ZEINA, dysrhythmia, electrolyte derangements, orthostatic hypotension. Ruling out the most morbid conditions drove assessment. On exam, the patient is well-appearing and is sitting in bed in no acute distress with normal vital signs on cardiac telemetry at rest. She has no focal neurologic deficits on exam. Cardiopulmonary and abdominal exams are benign. Workup included CBC, CMP, magnesium, phosphorus, TSH, T4, BNP, urinalysis, and EKG. Patient then disclosed to me that she believes she had been told that she had a C-spine fracture in the past and also has had multiple falls over the last several weeks. Given this, ordered CT head and cervical spine. She has no complaints of pain elsewhere, so no other imaging ordered. Patient was given a bolus of IV fluids to assess for symptomatic improvement. Orthostatic vital signs were obtained that demonstrated orthostatic hypotension with hypotension noted upon standing. Systolic went from low 100s to high 80s. Labs demonstrated slight ZEINA with creatinine 1.1 from a baseline of 0.9 and mild hyponatremia. Daughter reports that she does not drink very well. She is also mildly hypomagnesemic. IV replacement ordered. 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 She reports that her thyroid medication was recently increased from 10 28-11 10, but she declines any changes in how she is been taking it. Given this, we will plan to decrease her thyroid medication to 100 mcg and have her follow-up very closely with primary care for reassessment. This could be playing a role in how she is been feeling, but I do not feel she requires admission for it at this time given that her exam and workup of otherwise been reassuring. I feel most of her issues are likely related to her medications, including her flecainide, metoprolol, and hydrochlorothiazide. I did advise that she stop taking her hydrochlorothiazide and follow-up closely with primary care for recommendations on what to do with her flecainide and bisoprolol, as they may need to be decreased. Patient did receive IV fluid resuscitation as well as IV magnesium, which significantly proved her blood pressures and she was no longer orthostatic on repeat evaluation. She is able to ambulate at her baseline without significant lightheadedness or presyncope. I had discussion with her regarding admission versus discharge, but she is feeling better and wants to go home. Given this, will plan to discharge the patient with close follow-up. She is given instructions to stop taking hydrochlorothiazide, I changed her dose of levothyroxine and explained this to her, and I advised that she follow-up very closely with regard to her bisoprolol and flecainide to make sure that they do not to be decreased. She was given instructions for hydration. She was given strict return precautions and was discharged after all questions were answered. Critical Care Critical Care Time Critical Care Time: No
[2024-05-15 15:40] LABS: Basophils % 0.6 % (0.1-2.0); Eosinophils # 0.2 K/mm3 (0.0-0.4); Eosinophils % 2.3 % (0.1-12.0); Hematocrit 44.8 % (37.0-47.0); Hemoglobin 14.7 g/dL (12.2-16.2); Lymphocytes # 1.2 K/mm3 (0.7-4.5); Lymphocytes % 16.6 % (10-50); Mean Corpuscular HGB Conc 32.8 g/dL (31.8-35.4); Mean Corpuscular Hemoglobin 34.1 pg (27.0-31.2); Mean Corpuscular Volume 103.8 fl (81-99); Monocytes # 0.6 K/mm3 (0.1-1.0); Monocytes % 8.8 % (1.7-9.3); Neutrophils # 5.1 K/mm3 (1.8-7.8); Neutrophils % 71.7 % (37.0-80.0); Platelet Count 186 K/mm3 (142-424); Potassium 4.3 mmoL/L (3.5-5.1); Red Blood Count 4.31 M/mm3 (4.20-5.40); Red Cell Distribution Width 15.3 % (11.5-17.5); Sodium 134 mmol/L (136-145); White Blood Count 7.1 K/mm3 (4.8-10.8)
[2024-05-15 15:42] LABS: Alanine Aminotransferase 40 U/L (12-78); Albumin/Globulin Ratio 1.4 (1.1-1.8); Alkaline Phosphatase 80 U/L (38-126); Anion Gap 13.3 mEq/L (5-15); Aspartate Amino Transferase 55 U/L (14-36); Bilirubin,Total 0.7 mg/dl (0.2-1.3); Blood Urea Nitrogen 22 mg/dl (7-17); Carbon Dioxide 27 mmol/L (22.0-30.0); Creatinine Clearance Estimated 31 mL/min (50-200); Estimated Glomerular Filt Rate 48 ml/min (>60); GFR (African American) 58 ML/MIN (>60); Globulin 2.9 g/dL (1.3-3.2)
[2024-05-15 15:43] LABS: Calcium 9.8 mg/dl (8.4-10.2); Glucose 124 mg/dl (74-100); Magnesium 1.4 mg/dl (1.6-2.3); Phosphorous 3.8 mg/dl (2.5-4.5)
[2024-05-15 15:52] LABS: NT Pro Brain Natriuretic Pep. 962 pg/mL (0-450)
[2024-05-15 16:00] LABS: T4 (Thyroxine) 19.9 ug/dl (5.53-11.0)
[2024-05-15] MEDS: MAGNESIUM SULFATE IN WATER 2 GM/50 ML PIGGYBACK IV (16:03)
[2024-05-15] MEDS: LACTATED RINGERS 1000ML 1,000 ML 999 ML IV (16:04)
[2024-05-15 16:13] LABS: Thyroid Stimulating Hormone 0.19 uIU/mL (0.465-4.68)
[2024-05-15 17:38] VITALS: BP 101/70; BP 129/80; BP 140/81; PULSE 64; PULSE 66
[2024-05-15 18:00] VITALS: BP 133/83; PULSE 68; O2SAT 97
[2024-05-15 18:30] VITALS: BP 151/86; PULSE 71; O2SAT 97
[2024-05-15 18:46] VITALS: BP 157/84; PULSE 74; RESP 20; TEMP 36.7; O2SAT 97
== END 2024-05-15 18:49 | disposition home or self-care (01) ==
PROVIDERS: Emergency Provider Emergency Medicine; PCP Internal Medicine
DX: I95.1 Orthostatic hypotension (principal); E83.42 Hypomagnesemia; E05.40 Thyrotoxicosis factitia without thyrotoxic crisis or storm; N17.9 Acute kidney failure, unspecified; I48.91 Unspecified atrial fibrillation; I49.3 Ventricular premature depolarization; I45.10 Unspecified right bundle-branch block; R53.1 Weakness; I10 Essential (primary) hypertension; E78.5 Hyperlipidemia, unspecified
CPT/HCPCS: 70450; 72125; 80053; 83735; 83880; 84100; 84436; 84443; 85025; 93005; 96361; 96365; 99285; J3475; J7120

== ENCOUNTER 2024-06-21 11:35 | Day surgery (SDC) | payer MEDICARE, OTHER, SELFPAY ==
[2024-06-19 15:42] VITALS: BMI 19.5
[2024-06-21] MEDS: LACTATED RINGERS 1000ML 1,000 ML 25 ML IV (12:06)
[2024-06-21 12:07] VITALS: BP 143/75; PULSE 78; RESP 18; TEMP 36.6; O2SAT 97
--- NOTE | 2024-06-21 12:53 | EXP.ANES.CKL ---
[facility] Disclaimer: The information contained in this section may have been updated after the patient was seen, as this information can be updated by other users. Medical History HLD (hyperlipidemia) Right bundle branch block Aortic valve regurgitation Mitral valve regurgitation Hypertensive heart disease Afib Surgical History H/O total hysterectomy Hx of colonoscopy Family History Other Cancer Heart attack Social History Smoking Status: Never smoker alcohol intake: never substance use type: denies use current occupational status: retired Travel in the last 8 weeks: None [facility] Anesthesia Checklist Patient Identification Patient Identification: Arm Band Structural Data Admitted From: Home Planned Operative Procedure/s: EGD Consent for Planned Operative Procedure(s) Verified: Yes Verified Documents: History and Physical NPO Status Verified Time NPO: 00:00 Additional verifications Anesthesia Reactions: No Airway Assessment Mallampati Score:: Class II C-Spine Mobility Assessed: Yes TMJ Mobility Assessed: Yes Dentition: Good Dentition Neurological Assessment Level of Consciousness: Awake, Alert and Appropriate Anesthesia Plan Anesthesia Risk discussed: Yes Anesthesia Plan: Verified ASA Class: III Anesthesia Type: MAC
[2024-06-21 12:56] VITALS: O2SAT 97
--- NOTE | 2024-06-21 13:11 | HMH.SCOPE ---
Procedure: Date: 06/21/24 Patient Date of :: 1945 Procedure Performed:: EGD and dilation Indications:: Chronic dysphaiga Performing Provider:: Radha Osman MD Referring Provider:: Almas Park MD Sedation:: Propofol Procedure:: The gastroscope was gently passed through the incisoral orifice into the oral cavity and under direct visualization the esophagus was intubated. The endoscope was passed down the esophagus, through the stomach, and into the duodenum. Color, texture, mucosa, and anatomy of the esophagus, stomach, and duodenum were carefully examined with the scope. Findings:: Oropharynx: normal Esophagus: normal, moderately tight schatzki's ring noted, dilated with 15-18 mm balloon dilator w/o problems EG Junction: intact at 40 cm, small hiatus hernia Cardia: normal Fundus: normal Body: normal Antrum: normal Duodenal bulb: normal Duodenum (second and third portion): normal Impression: Schatzki's ring treated with balloon dilation Hiatus hernia Recommendations:: Consider repeat dilation in about THREE years or so, sooner if clinically indicated Complications:: None Estimated blood obtained (mL): 0 Colonoscopy Component Colonoscopy Component Was a colonoscopy performed during today's procedure?: No
[2024-06-21 13:12] VITALS: BP 130/78; PULSE 76; RESP 16; O2SAT 96
[2024-06-21 13:22] VITALS: BP 103/67; PULSE 73; RESP 14; O2SAT 97
[2024-06-21 13:32] VITALS: BP 102/77; PULSE 75; RESP 16; O2SAT 97
[2024-06-21 13:42] VITALS: BP 105/69; PULSE 70; RESP 16; O2SAT 97
== END 2024-06-21 13:43 | disposition home or self-care (01) ==
PROVIDERS: PCP Internal Medicine; Visit Provider Internal Medicine Gastroenterology
PROC: 0DJ08ZZ Inspection of Upper Intestinal Tract, Via Natural or Artificial Opening Endoscopic (ICD-10-PCS; CPT 43235; principal; 2024-06-21 13:00)
DX: R13.10 Dysphagia, unspecified (principal); K22.2 Esophageal obstruction; K44.9 Diaphragmatic hernia without obstruction or gangrene
CPT/HCPCS: 43249; C1726; J7120

== ENCOUNTER 2024-10-18 21:12 | Emergency (ER) | payer MEDICARE, OTHER, SELFPAY ==
[2024-10-18 21:09] VITALS: BMI 19.5
[2024-10-18 21:12] VITALS: BP 169/88; PULSE 73; RESP 18; TEMP 36.8; O2SAT 95; BMI 19.5
--- NOTE | 2024-10-18 21:13 | ECG_ITS ---
APPROVED REPORT Exam: Resting ECG HR:70 bpm ECG Measurements Heart Rate 70 AXES AR 196 P 269 QRSd 137 QRS -78 QT 468 T -7 QTc 488 Conclusion ECTOPIC ATRIAL RHYTHM LEFT AXIS DEVIATION [QRS AXIS < -30] RIGHT BUNDLE BRANCH BLOCK [120+ ms QRS DURATION, UPRIGHT V1, 40+ ms S IN I/aVL/V4/V5/V6] ABNORMAL ECG UNCONFIRMED REPORT Electronically signed by : KARELY BARONE, 10/19/2024 06:51:03
[2024-10-18 21:22] LABS: Basophils % 0.3 % (0.1-2.0); Eosinophils # 0.3 K/mm3 (0.0-0.4); Eosinophils % 2.3 % (0.1-12.0); Hematocrit 41.8 % (37.0-47.0); Hemoglobin 14.3 g/dL (12.2-16.2); Lymphocytes # 2.4 K/mm3 (0.7-4.5); Lymphocytes % 19.9 % (10-50); Mean Corpuscular HGB Conc 34.2 g/dL (31.8-35.4); Mean Corpuscular Hemoglobin 33.5 pg (27.0-31.2); Mean Corpuscular Volume 97.9 fl (81-99); Mean Platelet Volume 13.9 fl (7.4-10.4); Monocytes # 1.6 K/mm3 (0.1-1.0); Monocytes % 13.6 % (1.7-9.3); Neutrophils # 7.6 K/mm3 (1.8-7.8); Neutrophils % 63.6 % (37.0-80.0); Platelet Count 151 K/mm3 (142-424); Red Blood Count 4.27 M/mm3 (4.20-5.40); Red Cell Distribution Width 13.6 % (11.5-17.5); White Blood Count 11.9 K/mm3 (4.8-10.8)
[2024-10-18] MEDS: LACTATED RINGERS 1000ML 1,000 ML 999 ML IV (21:25)
[2024-10-18 21:27] VITALS: BP 102/68; BP 121/78; BP 144/84; PULSE 70; PULSE 71; PULSE 78
[2024-10-18 21:40] LABS: Albumin Level 4.5 g/dl (3.5-5.0); Chloride 98 mmol/L (98-107); Potassium 3.9 mmoL/L (3.5-5.1); Sodium 137 mmol/L (136-145)
[2024-10-18 21:43] LABS: Alanine Aminotransferase 46 U/L (12-78); Albumin/Globulin Ratio 1.5 (1.1-1.8); Alkaline Phosphatase 83 U/L (38-126); Anion Gap 14.9 mEq/L (5-15); Aspartate Amino Transferase 96 U/L (14-36); Bilirubin,Total 1.6 mg/dl (0.2-1.3); Blood Urea Nitrogen 28 mg/dl (7-17); Calcium 9.3 mg/dl (8.4-10.2); Carbon Dioxide 28 mmol/L (22.0-30.0); Creatinine Clearance Estimated 21 mL/min (50-200); Estimated Glomerular Filt Rate 29 ml/min (>60); GFR (African American) 35 ML/MIN (>60); Globulin 3.1 g/dL (1.3-3.2); Glucose 92 mg/dl (74-100); Total Protein,Serum 7.6 g/dl (6.3-8.2)
[2024-10-18 21:57] LABS: Troponin I 0.04 ng/ml (0.00-0.034)
[2024-10-18 22:10] LABS: Microscopic, Urine URINE MICROSCOPIC (MICROSCOPIC)
[2024-10-18 22:14] LABS: Appearance,Urine CLEAR (Clear); Bilirubin,Urine Negative (Negative); Blood, Urine 1+ (Negative); Color,Urine YELLOW (Yellow); Glucose,Urine (UA) Negative (Negative); Ketones,Urine Negative (Negative); Leukocyte Esterase,Urine Negative (Negative); Nitrate,Urine Negative (Negative); Protein,Urine 2+ (Negative); Specific Gravity, Urine >= 1.030 (1.005-1.030)
--- NOTE | 2024-10-18 22:16 | XR_ITS ---
PROCEDURE INFORMATION: Exam: XR Chest Exam date and time: 10/18/2024 10:28 PM Age: 79 years old Clinical indication: Other: Near syncope TECHNIQUE: Imaging protocol: Radiologic exam of the chest. Views: 1 view. COMPARISON: CT CERVICAL SPINE WO CON 05/15/2024 3:53 PM FINDINGS: Lungs: Unremarkable. No consolidation. Pleural spaces: Unremarkable. No pleural effusion. No pneumothorax. Heart/Mediastinum: The heart is normal in size. Mediastinum appears prominent in size. Bones/joints: Unremarkable. IMPRESSION: Diffuse mediastinal prominence. This is likely accentuated by patient rotation and may represent normal vascular structures. However, correlation with a PA and lateral chest or CT chest is recommended.
[2024-10-18 22:33] LABS: Squamous Epithelial Cell,Urine 20-50 #/hpf (0-5); WBC,Urine TNTC #/hpf (0-3)
[2024-10-18 22:34] LABS: Bacteria,Urine 3+ /lpf
--- NOTE | 2024-10-18 22:45 | [facility].EDGENADL ---
Discharge Plan Disposition Patient Disposition: Home, Self-Care Prescriptions Prescriptions: New sulfamethoxazole-trimethoprim 800-160 mg tablet 1 tab PO BID 7 Days Qty: 14 0RF No Action aspirin [Adult Low Dose Aspirin] 81 mg tablet,delayed release (DR/EC) 81 mg PO QDAY Emgality Pen 120 mg/mL pen injector 120 mg SQ QMONTH flecainide 100 mg tablet 50 mg PO BID furosemide [Lasix] 20 mg tablet 20 mg PO DAILY PRN (Reason: Fluid) hydrocodone-acetaminophen 7.5-325 mg tablet 7.5 tab PO DAILY PRN (Reason: Pain) Patient Comments: TAKE 1 TABLET BY MOUTH EVERY 8 HOURS hydrochlorothiazide 12.5 mg tablet 12.5 mg PO DAILY PRN (Reason: swelling) naproxen 250 mg tablet 250 mg PO DAILY PRN (Reason: Pain) hydrocortisone 2.5 % cream with perineal applicator 1 applic topical DAILY PRN (Reason: Rash) levothyroxine 100 mcg tablet 100 mcg PO DAILY Rx Instructions: 1 tablet by mouth daily paroxetine HCl 20 mg tablet 20 mg PO ONCE Rx Instructions: 1 tablet by mouth every day alprazolam [Xanax] 0.25 mg tablet 0.25 mg PO DAILY PRN (Reason: Anxiety) cyclobenzaprine 5 mg tablet 5 mg PO QHS PRN (Reason: muscle spasm) Qty: 30 1RF spironolactone 50 mg tablet See Rx Instructions .ROUTE .COMPLEX Qty: 90 0RF Dose Instruction: Take 1 tablet by mouth once daily Rx Instructions: Take 1 tablet by mouth once daily ezetimibe 10 mg tablet 10 mg PO DAILY Qty: 90 1RF famotidine 20 mg tablet 20 mg PO BID Qty: 180 1RF bisoprolol fumarate 5 mg tablet 5 mg PO DAILY Qty: 90 1RF rosuvastatin 20 mg tablet 20 mg PO ONCE Qty: 90 1RF Referrals Follow up/Referrals: Al[place] Park MD [Primary Care Provider] - See instructions Activity Restrictions/Add. Instructions Additional Instructions/Restrictions: Please follow-up with your primary care provider. Please return to the emergency department if you develop any new or worsening symptoms or become concerned for your health. Please take antibiotics as prescribed for treatment of urinary tract infection. Clinical Impressions Clinical Impression: Pre-syncope, Orthostasis, Elevated serum creatinine, Aortic aneurysm, Acute UTI Fracture, ribs Qualifiers: Encounter type: sequela Fracture type: closed Laterality: left Qualified Code(s): S22.42XS - Multiple fractures of ribs, left side, sequela Print Language Print Language: Indonesian Discharge ED Provider: Rojelio Sykes General Adult HPI <David Gracia MD - Last Filed: 10/18/24 23:41> General Chief complaint: Weakness Stated complaint: weakness Time Seen by Provider: 10/18/24 21:24 Mode of Arrival: EMS Source of Information: Patient Limitations: No Limitations Description of Symptoms (Recalled from ER Triage Doc. by RN): Pt to ed via [facility] w c/o lightheadedness when standing History of Present Illness HPI narrative: Please note that above description of symptoms, in this electronic medical record under categorization of recalled from ER triage doctor by RN are reflective of an initial nursing assessment, however, is not reflective of my full history and physical exam that was personally taken and clarified. Consequentially, this preceding description of symptoms, which may include the patient's categorized chief complaint in the EMR, do not reflect my personal clinical impression, and the ultimate description of history of present illness and patient stated complaints should be deferred to this section of the note. Unless stated otherwise or congruent with this section of the note, additional signs, symptoms, or incongruence should be interpreted as inaccurate with my clinical impression. Related Data Home Medications ?Medication ?Instructions ?Recorded ?Confirmed aspirin 81 mg tablet,delayed 81 mg PO QDAY 10/17/17 10/18/24 release (Adult Low Dose Aspirin) galcanezumab-gnlm 120 mg/mL 120 mg SQ QMONTH 12/23/20 10/18/24 subcutaneous pen injector (Emgality Pen) alprazolam 0.25 mg tablet (Xanax) 0.25 mg PO DAILY PRN Anxiety 01/24/23 10/18/24 flecainide 100 mg tablet 50 mg PO BID 02/28/23 10/18/24 furosemide 20 mg tablet (Lasix) 20 mg PO DAILY PRN Fluid 04/17/24 10/18/24 hydrochlorothiazide 12.5 mg tablet 12.5 mg PO DAILY PRN swelling 09/05/24 10/18/24 hydrocodone 7.5 mg-acetaminophen 7.5 tab PO DAILY PRN Pain 09/05/24 10/18/24 325 mg tablet hydrocortisone 2.5 % topical cream 1 applic topical DAILY PRN Rash 09/05/24 10/18/24 with perineal applicator naproxen 250 mg tablet 250 mg PO DAILY PRN Pain 09/05/24 10/18/24 levothyroxine 100 mcg tablet 100 mcg PO DAILY 09/25/24 10/18/24 paroxetine HCl 20 mg tablet 20 mg PO ONCE 09/25/24 10/18/24 Previous Rx's ?Medication ?Instructions ?Recorded spironolactone 50 mg tablet See Rx Instructions .Route 12/20/22 .COMPLEX #90 tabs cyclobenzaprine 5 mg tablet 5 mg PO QHS PRN muscle spasm #30 04/03/24 tabs ezetimibe 10 mg tablet 10 mg PO DAILY #90 tabs 05/08/24 famotidine 20 mg tablet 20 mg PO BID #180 tabs 05/11/24 bisoprolol fumarate 5 mg tablet 5 mg PO DAILY #90 tabs 05/21/24 rosuvastatin 20 mg tablet 20 mg PO ONCE #90 tabs 05/21/24 sulfamethoxazole 800 1 tab PO BID 7 days #14 tabs 10/19/24 mg-trimethoprim 160 mg tablet Allergies Allergy/AdvReac Type Severity Reaction Status Date / Time morphine (MORPHINE) Allergy Mild HEART BEAT Verified 10/18/24 13:12 SLOWS [facility] <David Gracia MD - Last Filed: 10/18/24 23:41> PFS Disclaimer: The information contained in this section may have been updated after the patient was seen, as this information can be updated by other users. Medical History Hypertension Hypercholesteremia GERD (gastroesophageal reflux disease) Hypothyroidism Hx of deep venous thrombosis HLD (hyperlipidemia) Right bundle branch block Aortic valve regurgitation Mitral valve regurgitation Hypertensive heart disease Afib Surgical History H/O hemorrhoidectomy H/O esophagogastroduodenoscopy H/O total hysterectomy Hx of colonoscopy Family History Other Cancer Heart attack Social History Smoking Status: Never smoker alcohol intake: current alcohol intake frequency: holidays/special occasions only substance use type: denies use current occupational status: retired Travel in the last 8 weeks: None Have you lived/traveled outside [place] in past 30 days?: No Contact w/someone who lives/traveled outside [place] past 30 days?: No Exposure to someone with infectious disease in past 14 days?: No Do you have a fever (greater than 100.4 F or 38 C)?: No Have you tested positive for COVID-19: No Exposed to someone with COVID-19 in past 14 days?: No Do you have a sore throat?: No Do you have a cough?: No Do you have any weakness?: Yes Do you have any diarrhea?: No Are you experiencing any unusual bleeding?: No Do you have any muscle aches/pain?: No Do you have any abdominal pain?: No Are you experiencing loss of taste or smell?: No Other Medical History Have you received the Flu Vaccine for this season: No Have you received the Pneumonia Vaccine: Yes <David Gracia MD - Last Filed: 10/18/24 23:41> ROS Obtained: Yes All systems reviewed & no additional complaints except as documented Physical Exam <David Gracia MD - Last Filed: 10/18/24 23:41> General General appearance: alert Head Head exam: atraumatic and normocephalic Eye Eye exam: Present normal appearance, PERRL and EOMI Neck Neck exam: Present normal inspection, full ROM and trachea midline Respiratory Respiratory exam: Absent respiratory distress, wheezes, stridor, accessory muscle use or prolonged expiratory phase Cardiovascular Cardiovascular exam: Present other (Pulses equal symmetric in upper and lower extremities) Abdominal Exam Abdominal exam: Present soft; Absent distention, tenderness or pulsatile mass Extremities Exam Extremities exam: Absent edema Neurological Exam Neurological exam: Present alert, oriented X3 and CN II-XII intact; Absent motor sensory deficit Skin Skin exam: Present warm and dry; Absent diaphoresis or erythema Medical Decision Making <David Gracia MD - Last Filed: 10/18/24 23:41> Medical Records Medical records reviewed: Yes I reviewed the patient's medical records. Screening: Per USPSTF and CDC recommendations, given the prevalence of disease in our region, it is our hospital?s policy to screen for HIV and viral Hepatitis for all patients aged 18 and over and those with ongoing risk factors. Sandip Inquiry Pt receiving controlled substance: No Sandip was queried for this patient: No Vital Signs: 10/18/24 21:12 10/18/24 21:27 10/19/24 02:28 Temperature 98.2 F 98.2 F Temperature Source Oral Oral Pulse Rate 66 Pulse Rate [Apical] 73 Pulse Rate [Orthostatic Lying Right] 70 Pulse Rate [Orthostatic Sitting Right] 71 Pulse Rate [Orthostatic Standing Right] 78 Respiratory Rate 18 18 Blood Pressure 130/78 Blood Pressure [Orthostatic Lying Right Arm] 144/84 H Blood Pressure [Orthostatic Sitting Right Arm] 121/78 Blood Pressure [Orthostatic Standing Right Arm] 102/68 L Blood Pressure [Right Arm] 169/88 H Blood Pressure Mean [Right Arm] 115 Blood Pressure Source Automatic Cuff Blood Pressure Source [Right Arm] Automatic Cuff Blood Pressure Position Sitting Blood Pressure Position [Right Arm] Sitting 02 Sat by Pulse Oximetry 95 Oxygen Delivery Method Room Air Room Air Lab Data Lab Results 10/18/24 21:07: WBC 11.9 H, RBC 4.27, Hgb 14.3, Hct 41.8, MCV 97.9, MCH 33.5 H, MCHC 34.2, RDW 13.6, Plt Count 151, MPV 13.9 H, Neut % (Auto) 63.6, Lymph % (Auto) 19.9, Teller % (Auto) 13.6 H, Eos % (Auto) 2.3, Baso % (Auto) 0.3, Neut # (Auto) 7.6, Lymph # (Auto) 2.4, Teller # (Auto) 1.6 H, Eos # (Auto) 0.3, Baso # (Auto) 0.0, Sodium 137, Potassium 3.9, Chloride 98, Carbon Dioxide 28, Anion Gap 14.9, BUN 28 H, Creatinine 1.70 H, Estimated Creat Clear 21, Estimated GFR 29 L, Est GFR ( Amer) 35 L, Glucose 92, Calcium 9.3, Total Bilirubin 1.6 H, AST 96 H, ALT 46, Alkaline Phosphatase 83, Troponin I 0.04 H, Total Protein 7.6, Albumin 4.5, Globulin 3.1, Albumin/Globulin Ratio 1.5 10/18/24 22:05: Urine Color Yellow, Urine Appearance Clear, Urine pH 6.0, Ur Specific [place] >= 1.030, Urine Protein 2+ A, Urine Glucose (UA) Negative, Urine Ketones Negative, Urine Blood 1+ A, Urine Nitrate Negative, Urine Bilirubin Negative, Urine Urobilinogen 1.0, Ur Leukocyte Esterase Negative, Urine RBC 5-10, Urine WBC Tntc, Ur Squamous Epith Cells 20-50, Urine Bacteria 3+ 10/19/24 00:13: Troponin I 0.01 10/18/24 21:07 10/18/24 21:07 Orders (Tests/Meds): ED MEDICATIONS Discontinued Medications Generic Name Dose Route Start Last Admin Trade Name Freq PRN Reason Stop Dose Admin Ceftriaxone Sodium 1 gm 10/18/24 23:19 10/18/24 23:38 Ceftriaxone 1gm Vial IV 10/18/24 23:20 1 gm ONCE ONE Administration Lactated Ringer's 1,000 mls @ 999 mls/hr 10/18/24 21:24 10/18/24 21:25 Lactated Ringer's 1000 Ml Bag IV 10/18/24 22:24 999 mls/hr .Q1H1M ONE Administration Iopamidol 70 ml 10/19/24 01:22 10/19/24 01:23 Iopamidol-370 (76%);100ml Bottle IV 10/19/24 01:23 70 ml ONCE ONE Administration Sodium Chloride 50 ml 10/19/24 01:22 10/19/24 01:23 0.9 % Sodium Chloride 50 Ml Vial IV 10/19/24 01:23 50 ml ONCE ONE Administration Sodium Chloride 10 ml 10/19/24 01:22 10/19/24 01:24 Sodium Chloride 0.9% 10ml Syr (Rad Only) IV 11/18/24 01:21 10 ml NEEDED PRN Administration Maintain IV Site ORDERS Category Date Time Status CT angio chest PE protocol Stat Cat Scan 10/18/24 23:32 Completed CXR --portable [XR chest portable] Stat Exams 10/18/24 22:16 Completed Complete Blood Count Auto Diff Stat Lab 10/18/24 21:07 Completed Comprehensive Metabolic Panel Stat Lab 10/18/24 21:07 Completed Troponin I Q3H Lab 10/19/24 00:13 Completed Troponin I Stat Lab 10/18/24 21:07 Completed Urinalysis and Microscopic Stat Lab 10/18/24 22:05 Completed Urine Culture Stat Micro 10/18/24 22:05 Received Medical Decision Narrative: This is a 79-year-old female with history of hypertension, hyperlipidemia, paroxysmal A-fib on Eliquis presenting with syncopal episodes. Patient states that she has felt near syncope all day today. Has a history of dehydration, but only take as needed. States that she wanted diuretic, Aldactone. She had 2 near syncopal. Episodes today. EMS was called. Sugar was normal on arrival, patient was severely orthostatic. Given fluids on the way. On arrival, patient states that she is currently completely asymptomatic laying in bed. States that she was feeling lightheaded, tunnel vision, but did not have chest pain, palpitations, nausea, vomiting, and did not completely lose consciousness. History obtained the patient and EMS. On arrival, mildly hypotensive after settling in and nontachycardic. Saturating appropriately. Lungs are clear, cardiac exam normal. No lower extremity edema. Abdomen soft. She is grossly neurologically intact. Differential includes ACS, MN, pneumothorax, CHF, pneumonia, iatrogenic, among others. Patient placed on cardiac monitoring with initial blood pressure systolic 113/87, heart rate 73, O2 sat 95% on room air on continuous pulse oximetry. EKG performed and independently interpreted. Ectopic atrial rhythm with regular intervals. HI 196, QRS 137, QTc 488. No acute ischemic change. Independent TURP Tatian of workup with leukocytosis 11.9, but notably patient has an ZEINA with creatinine 1.7 up from normal baseline. Initial troponin elevated 0.04. Urinalysis with protein, blood, too numerous to count white cells and bacteria consistent with UTI. There are numerous squamous cells, but other findings are out of proportion for gross contamination. Chest x-ray independently interpreted abnormal soft tissue mass versus structure on the right hemithorax. Unable to determine what this is. On reevaluation, patient states that she feels much better, no longer currently having symptoms. I feel this is very likely all related to hypotension in the setting of spironolactone. It was recommended that she discontinue taking this and follow-up with her family doctor and she voiced her understanding. Conversation had with family regarding further imaging, they are agreeable to CT of the chest. This was ordered, prior to reevaluation, delta troponin, CT, care handed off to oncoming physician. Drug Enforcement Agent disclaimer Much of this encounter note is an electronic writer producer spoken language to printed text. Electronic writer producer of the spoken language may permit errors. Although I have reviewed the note, some errors may still exist. <Rojelio Sykes MD - Last Filed: 10/19/24 04:00> Vital Signs: 10/18/24 21:12 10/18/24 21:27 10/19/24 02:28 Temperature 98.2 F 98.2 F Temperature Source Oral Oral Pulse Rate 66 Pulse Rate [Apical] 73 Pulse Rate [Orthostatic Lying Right] 70 Pulse Rate [Orthostatic Sitting Right] 71 Pulse Rate [Orthostatic Standing Right] 78 Respiratory Rate 18 18 Blood Pressure 130/78 Blood Pressure [Orthostatic Lying Right Arm] 144/84 H Blood Pressure [Orthostatic Sitting Right Arm] 121/78 Blood Pressure [Orthostatic Standing Right Arm] 102/68 L Blood Pressure [Right Arm] 169/88 H Blood Pressure Mean [Right Arm] 115 Blood Pressure Source Automatic Cuff Blood Pressure Source [Right Arm] Automatic Cuff Blood Pressure Position Sitting Blood Pressure Position [Right Arm] Sitting 02 Sat by Pulse Oximetry 95 Oxygen Delivery Method Room Air Room Air Lab Data Lab Results 10/18/24 21:07: WBC 11.9 H, RBC 4.27, Hgb 14.3, Hct 41.8, MCV 97.9, MCH 33.5 H, MCHC 34.2, RDW 13.6, Plt Count 151, MPV 13.9 H, Neut % (Auto) 63.6, Lymph % (Auto) 19.9, Teller % (Auto) 13.6 H, Eos % (Auto) 2.3, Baso % (Auto) 0.3, Neut # (Auto) 7.6, Lymph # (Auto) 2.4, Teller # (Auto) 1.6 H, Eos # (Auto) 0.3, Baso # (Auto) 0.0, Sodium 137, Potassium 3.9, Chloride 98, Carbon Dioxide 28, Anion Gap 14.9, BUN 28 H, Creatinine 1.70 H, Estimated Creat Clear 21, Estimated GFR 29 L, Est GFR ( Amer) 35 L, Glucose 92, Calcium 9.3, Total Bilirubin 1.6 H, AST 96 H, ALT 46, Alkaline Phosphatase 83, Troponin I 0.04 H, Total Protein 7.6, Albumin 4.5, Globulin 3.1, Albumin/Globulin Ratio 1.5 10/18/24 22:05: Urine Color Yellow, Urine Appearance Clear, Urine pH 6.0, Ur Specific [place] >= 1.030, Urine Protein 2+ A, Urine Glucose (UA) Negative, Urine Ketones Negative, Urine Blood 1+ A, Urine Nitrate Negative, Urine Bilirubin Negative, Urine Urobilinogen 1.0, Ur Leukocyte Esterase Negative, Urine RBC 5-10, Urine WBC Tntc, Ur Squamous Epith Cells 20-50, Urine Bacteria 3+ 10/19/24 00:13: Troponin I 0.01 Orders (Tests/Meds): ED MEDICATIONS Discontinued Medications Generic Name Dose Route Start Last Admin Trade Name Freq PRN Reason Stop Dose Admin Ceftriaxone Sodium 1 gm 10/18/24 23:19 10/18/24 23:38 Ceftriaxone 1gm Vial IV 10/18/24 23:20 1 gm ONCE ONE Administration Lactated Ringer's 1,000 mls @ 999 mls/hr 10/18/24 21:24 10/18/24 21:25 Lactated Ringer's 1000 Ml Bag IV 10/18/24 22:24 999 mls/hr .Q1H1M ONE Administration Iopamidol 70 ml 10/19/24 01:22 10/19/24 01:23 Iopamidol-370 (76%);100ml Bottle IV 10/19/24 01:23 70 ml ONCE ONE Administration Sodium Chloride 50 ml 10/19/24 01:22 10/19/24 01:23 0.9 % Sodium Chloride 50 Ml Vial IV 10/19/24 01:23 50 ml ONCE ONE Administration Sodium Chloride 10 ml 10/19/24 01:22 10/19/24 01:24 Sodium Chloride 0.9% 10ml Syr (Rad Only) IV 11/18/24 01:21 10 ml NEEDED PRN Administration Maintain IV Site ORDERS Category Date Time Status CT angio chest PE protocol Stat Cat Scan 10/18/24 23:32 Completed CXR --portable [XR chest portable] Stat Exams 10/18/24 22:16 Completed Complete Blood Count Auto Diff Stat Lab 10/18/24 21:07 Completed Comprehensive Metabolic Panel Stat Lab 10/18/24 21:07 Completed Troponin I Q3H Lab 10/19/24 00:13 Completed Troponin I Stat Lab 10/18/24 21:07 Completed Urinalysis and Microscopic Stat Lab 10/18/24 22:05 Completed Urine Culture Stat Micro 10/18/24 22:05 Received Medical Decision Narrative: This is a 79-year-old female with history of hypertension, hyperlipidemia, paroxysmal A-fib on Eliquis presenting with syncopal episodes. Patient states that she has felt near syncope all day today. Has a history of dehydration, but only take as needed. States that she wanted diuretic, Aldactone. She had 2 near syncopal. Episodes today. EMS was called. Sugar was normal on arrival, patient was severely orthostatic. Given fluids on the way. On arrival, patient states that she is currently completely asymptomatic laying in bed. States that she was feeling lightheaded, tunnel vision, but did not have chest pain, palpitations, nausea, vomiting, and did not completely lose consciousness. History obtained the patient and EMS. On arrival, mildly hypotensive after settling in and nontachycardic. Saturating appropriately. Lungs are clear, cardiac exam normal. No lower extremity edema. Abdomen soft. She is grossly neurologically intact. Differential includes ACS, MN, pneumothorax, CHF, pneumonia, iatrogenic, among others. Patient placed on cardiac monitoring with initial blood pressure systolic 113/87, heart rate 73, O2 sat 95% on room air on continuous pulse oximetry. EKG performed and independently interpreted. Ectopic atrial rhythm with regular intervals. HI 196, QRS 137, QTc 488. No acute ischemic change. Independent TURP Tatian of workup with leukocytosis 11.9, but notably patient has an ZEINA with creatinine 1.7 up from normal baseline. Initial troponin elevated 0.04. Urinalysis with protein, blood, too numerous to count white cells and bacteria consistent with UTI. There are numerous squamous cells, but other findings are out of proportion for gross contamination. Chest x-ray independently interpreted abnormal soft tissue mass versus structure on the right hemithorax. Unable to determine what this is. On reevaluation, patient states that she feels much better, no longer currently having symptoms. I feel this is very likely all related to hypotension in the setting of spironolactone. It was recommended that she discontinue taking this and follow-up with her family doctor and she voiced her understanding. Conversation had with family regarding further imaging, they are agreeable to CT of the chest. This was ordered, prior to reevaluation, delta troponin, CT, care handed off to oncoming physician. Mony LARA: I assumed care of the patient at the time of handoff from the prior provider. On reassessment patient reports symptomatic improvement. Repeat troponin is undetectably low. CT of the chest shows dilated and tortuous aorta, no evidence of acute esophageal pathology, PE or other serious pathology. 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 I relayed these CT imaging findings to the family. I discharged the patient in stable condition with prescription for Bactrim for treatment of urinary tract infection. Return precautions given. Drug Enforcement Agent disclaimer Much of this encounter note is an electronic writer producer spoken language to printed text. Electronic writer producer of the spoken language may permit errors. Although I have reviewed the note, some errors may still exist. Critical Care <David Gracia MD - Last Filed: 10/18/24 23:41> Critical Care Time Critical Care Time: No
--- NOTE | 2024-10-18 23:32 | CT_ITS ---
PROCEDURE INFORMATION: Exam: CTA Chest With Contrast Exam date and time: 10/19/2024 1:15 AM Age: 79 years old Clinical indication: Other: Pre-syncope; Additional info: Pre-syncope, abnormal cxr TECHNIQUE: Imaging protocol: Computed tomographic angiography of the chest with contrast. Exam focused on the arteries. 3D rendering (Not supervised by radiologist): MIP and/or 3D reconstructed images were created by the technologist. Radiation optimization: All CT scans at this facility use at least one of these dose optimization techniques: automated exposure control; mA and/or kV adjustment per patient size (includes targeted exams where dose is matched to clinical indication); or iterative reconstruction. Contrast material: ISOVUE; Contrast volume: 70 ml; Contrast route: INTRAVENOUS (IV); COMPARISON: CR XR CHEST PORTABLE 10/18/2024 10:28 PM FINDINGS: Pulmonary arteries: Normal. No pulmonary emboli. Aorta: There is tortuosity and moderate dilation of the thoracic aorta accounting for mediastinal prominence seen on recent chest radiograph. Ascending aorta measures maximum diameter 3.8 cm. No evidence of aortic dissection. Lungs: Unremarkable. No consolidation. No masses. Pleural spaces: Unremarkable. No pneumothorax. No pleural effusion. Heart: Unremarkable. No cardiomegaly. No pericardial effusion. Lymph nodes: Unremarkable. No enlarged lymph nodes. Bones/joints: L2 compression fracture again noted, as described on CT of 04/18/2024. Nonacute ununited nonsegmental fractures involve the lateral aspect of the left 3rd, 4th and 6th ribs. Nondisplaced, nonacute segmental fracture involves the lateral left 5th rib. No definite acute fracture. Mild multilevel degenerative disc changes throughout the thoracic spine. Soft tissues: Unremarkable. IMPRESSION: 1. Dilation and tortuosity of the thoracic aorta accounts for mediastinal prominence on recent chest radiograph. No acute aortic pathology evident 2. Nonacute appearing fractures in the left ribcage and of the L2 vertebra as described.
[2024-10-18] MEDS: cefTRIAXone 1GM VIAL 1 GM IV (23:38)
[2024-10-19 01:16] LABS: Troponin I 0.01 ng/ml (0.00-0.034)
[2024-10-19] MEDS: 0.9 % SODIUM CHLORIDE 50 ML VIAL IV (01:23)
[2024-10-19] MEDS: IOPAMIDOL-370 (76%);100ML BOTTLE 70 ML IV (01:23)
[2024-10-19] MEDS: SODIUM CHLORIDE 0.9% 10ML SYR (RAD ONLY) 10 ML IV (01:24)
[2024-10-19 02:28] VITALS: BP 130/78; PULSE 66; RESP 18; TEMP 36.8; O2SAT 96
== END 2024-10-19 02:31 | disposition home or self-care (01) ==
PROVIDERS: Emergency Medicine; Emergency Provider Emergency Medicine; PCP Internal Medicine
DX: I71.9 Aortic aneurysm of unspecified site, without rupture (principal); N39.0 Urinary tract infection, site not specified; I95.1 Orthostatic hypotension; R79.89 Other specified abnormal findings of blood chemistry; R53.1 Weakness; R42 Dizziness and giddiness; S22.42XA Multiple fractures of ribs, left side, initial encounter for closed fracture
CPT/HCPCS: 71045; 71275; 80053; 81001; 84484; 85025; 87086; 93005; 96361; 96374; 99285; J0696; J7120; Q9967

== ENCOUNTER 2024-11-15 06:02 | Day surgery (SDC) | payer MEDICARE, OTHER, SELFPAY ==
[2024-10-24 11:44] VITALS: BMI 19.5
[2024-11-13 13:35] VITALS: BMI 19.1
[2024-11-15] VITALS (7 sets, daily range): BP systolic 92–165; BP diastolic 56–87; PULSE 65–70; RESP 18–20; TEMP 36.4; O2SAT 93–100
[2024-11-15] MEDS: LACTATED RINGERS 1000ML 1,000 ML 50 ML IV (06:18)
--- NOTE | 2024-11-15 07:18 | EXP.ANES.CKL ---
[facility] Disclaimer: The information contained in this section may have been updated after the patient was seen, as this information can be updated by other users. Medical History Hypertension Hypercholesteremia GERD (gastroesophageal reflux disease) Hypothyroidism Hx of deep venous thrombosis HLD (hyperlipidemia) Right bundle branch block Aortic valve regurgitation Mitral valve regurgitation Hypertensive heart disease Afib Surgical History H/O hemorrhoidectomy H/O esophagogastroduodenoscopy H/O total hysterectomy Hx of colonoscopy Family History Other Cancer Heart attack Social History Smoking Status: Never smoker alcohol intake: current alcohol intake frequency: holidays/special occasions only substance use type: denies use current occupational status: retired Travel in the last 8 weeks: None Have you lived/traveled outside US in past 30 days?: No Contact w/someone who lives/traveled outside US past 30 days?: No Exposure to someone with infectious disease in past 14 days?: No Do you have a fever (greater than 100.4 F or 38 C)?: No Have you tested positive for COVID-19: No Exposed to someone with COVID-19 in past 14 days?: No Do you have a sore throat?: No Do you have a cough?: No Do you have any weakness?: No Are you experiencing any nausea/vomitting?: No Do you have any diarrhea?: No Are you experiencing any unusual bleeding?: No Do you have any muscle aches/pain?: No Do you have any abdominal pain?: No Are you experiencing loss of taste or smell?: No [facility] Anesthesia Checklist Patient Identification Patient Identification: Verbal (Name & ) Structural Data Admitted From: Home Planned Operative Procedure/s: egd Consent for Planned Operative Procedure(s) Verified: Yes NPO Status Verified Time NPO: 00:00 Additional verifications Anesthesia Reactions: No Airway Assessment Mallampati Score:: Class II C-Spine Mobility Assessed: Yes TMJ Mobility Assessed: Yes Dentition: Good Dentition Neurological Assessment Level of Consciousness: Awake, Alert and Appropriate Anesthesia Plan Anesthesia Risk discussed: Yes Anesthesia Plan: Verified ASA Class: II Anesthesia Type: MAC
--- NOTE | 2024-11-15 07:35 | EXP.HP ---
History of Present Illness *Admission Date: 11/15/24 *Reason for visit:: Dysphagia *History of present illness: Mrs. Santos is an 79-year-old female who is here for dysphagia and weight loss. She also has some odynophagia. The examination is deemed medically necessary for diagnostic/therapeutic EGD. The patient has been seen, interviewed and examined prior to the procedure by both myself and the anesthesia provider. [facility] Disclaimer: The information contained in this section may have been updated after the patient was seen, as this information can be updated by other users. Medical History Hypertension Hypercholesteremia GERD (gastroesophageal reflux disease) Hypothyroidism Hx of deep venous thrombosis HLD (hyperlipidemia) Right bundle branch block Aortic valve regurgitation Mitral valve regurgitation Hypertensive heart disease Afib Surgical History H/O hemorrhoidectomy H/O esophagogastroduodenoscopy H/O total hysterectomy Hx of colonoscopy Family History Other Cancer Heart attack Social History Smoking Status: Never smoker alcohol intake: current alcohol intake frequency: holidays/special occasions only substance use type: denies use current occupational status: retired Travel in the last 8 weeks: None Have you lived/traveled outside US in past 30 days?: No Contact w/someone who lives/traveled outside US past 30 days?: No Exposure to someone with infectious disease in past 14 days?: No Do you have a fever (greater than 100.4 F or 38 C)?: No Have you tested positive for COVID-19: No Exposed to someone with COVID-19 in past 14 days?: No Do you have a sore throat?: No Do you have a cough?: No Do you have any weakness?: No Are you experiencing any nausea/vomitting?: No Do you have any diarrhea?: No Are you experiencing any unusual bleeding?: No Do you have any muscle aches/pain?: No Do you have any abdominal pain?: No Are you experiencing loss of taste or smell?: No Other Medical History Have you received the Flu Vaccine for this season: No Have you received the Pneumonia Vaccine: Yes Review of Systems Review of Systems Review of systems (narrative): Negative *Cardiovascular Comments: Negative *Gastrointestinal Comments: Negative *Genitourinary Comments: Negative *Musculoskeletal Comments: Negative *Neurologic Comments: Negative Meds Home Medications and Allergies Home Medications ?Medication ?Instructions ?Recorded ?Confirmed ?Type aspirin 81 mg tablet,delayed 81 mg PO QDAY 10/17/17 11/15/24 History release (Adult Low Dose Aspirin) galcanezumab-gnlm 120 mg/mL 120 mg SQ QMONTH 12/23/20 11/15/24 History subcutaneous pen injector (Emgality Pen) spironolactone 50 mg tablet See Rx Instructions .Route 12/20/22 11/15/24 Rx .COMPLEX #90 tabs alprazolam 0.25 mg tablet (Xanax) 0.25 mg PO DAILY PRN Anxiety 01/24/23 11/15/24 History flecainide 100 mg tablet 50 mg PO BID 02/28/23 11/15/24 History cyclobenzaprine 5 mg tablet 5 mg PO QHS PRN muscle spasm #30 04/03/24 11/15/24 Rx tabs furosemide 20 mg tablet (Lasix) 20 mg PO DAILY PRN Fluid 04/17/24 11/15/24 History ezetimibe 10 mg tablet 10 mg PO DAILY #90 tabs 05/08/24 11/15/24 Rx famotidine 20 mg tablet 20 mg PO BID #180 tabs 05/11/24 11/15/24 Rx bisoprolol fumarate 5 mg tablet 5 mg PO DAILY #90 tabs 05/21/24 11/15/24 Rx rosuvastatin 20 mg tablet 20 mg PO ONCE #90 tabs 05/21/24 11/15/24 Rx hydrochlorothiazide 12.5 mg tablet 12.5 mg PO DAILY PRN swelling 09/05/24 11/15/24 History hydrocortisone 2.5 % topical cream 1 applic topical DAILY PRN Rash 09/05/24 11/15/24 History with perineal applicator naproxen 250 mg tablet 250 mg PO DAILY PRN Pain 09/05/24 11/15/24 History levothyroxine 100 mcg tablet 100 mcg PO DAILY 09/25/24 11/15/24 History paroxetine HCl 20 mg tablet 20 mg PO ONCE 09/25/24 11/15/24 History hydrocodone 7.5 mg-acetaminophen 7.5 tab PO BID PRN Pain #20 tabs 11/08/24 11/15/24 Rx 325 mg tablet New Prescriptions to Start Prescriptions: Allergies Allergy/AdvReac Type Severity Reaction Status Date / Time morphine (MORPHINE) Allergy Mild HEART BEAT Verified 11/13/24 13:15 SLOWS Exam Data for Last 24 hours Vital signs and Labs for Last 24 Hours: Temp Pulse Resp BP Pulse Ox O2 Del Method 97.6 F 70 18 165/87 H 95 Room Air 11/15/24 06:20 11/15/24 06:20 11/15/24 06:20 11/15/24 06:20 11/15/24 06:20 11/15/24 06:20 I & O for Last 24 hours: Intake & Output 11/12/24 11/13/24 11/14/24 11/15/24 23:59 23:59 23:59 23:59 Weight 108 lb *Routine HEENT Exam Head: Present normocephalic Eye: Present EOMI and PERRL ENT: Present mucous membranes moist *Routine Neck Exam Neck: Present supple *Routine Respiratory Exam Respiratory: Present CTA bilaterally *Routine Cardiovascular Exam Cardiovascular: Present RRR *Routine Abdominal Exam Abdominal: Present soft and normoactive bowel sounds; Absent tenderness *Routine Rectal Exam Rectal:: deferred *Routine Genitalia Exam Genitalia:: deferred *Routine Extremities Exam Extremities: Absent cyanosis, clubbing or edema *Routine Skin Exam Skin: Present warm; Absent rash *Routine Neurological Exam Neurological: Present alert and oriented X3 Assessment and Plan *Assessment and plan (1) Dysphagia: Status: Acute Category: Medical Code(s): R13.10 - Dysphagia, unspecified (2) Odynophagia: Status: Acute Category: Medical Code(s): R13.10 - Dysphagia, unspecified (3) Schatzki's ring: Status: Acute Category: Medical Code(s): K22.2 - Esophageal obstruction (4) Weight loss: Status: Acute Category: Medical Code(s): R63.4 - Abnormal weight loss Plan A/P: 1. Dysphagia with some odontophagia and known Schatzki's ring with some weight loss is the preprocedural diagnosis. The patient will be anesthetized/sedated using MAC sedation. The patient has been seen and examined. Cardiac and lung assessment prior to the examination is stable. Proceed with planned diagnostic EGD/therapeutic
--- NOTE | 2024-11-15 07:37 | P.PCN_ITS ---
[facility] Procedure Note Date: 11/15/24 Time: 07:56 Procedure Note:: Upper Endoscopy Procedure Report: Esophagogastroduodenoscopy with cold biopsies and TTS balloon dilation Endoscopost: Benny Maher II, MD Referring Physician: Almas Park MD Date of Procedure: November 15, 2024 Equipment: Olympus GIF 190 standard upper endoscope Sedation: MAC sedation Indications: Mrs. Santos is an 79-year-old female with dysphagia who is here for diagnostic/therapeutic upper endoscopy. Over the last couple of years, she has lost a lot of weight and more than 20 pounds. The patient did have an EGD with Radha Osman MD on June 21, 2024. She was found to have a Schatzki's ring that was dilated up to 18 mm with a TTS hydrostatic balloon. The patient did have a small hiatal hernia. The patient had improvement for about a month but has had recurrence of her swallowing difficulty. She sometimes will have some painful swallowing/odynophagia. This occurs primarily with solid foods and large tablets but can occur with liquids. The patient does have some chronic constipation for which she takes MiraLAX as needed. This can lead to liquid stools. She also has a lot of bloating and some belching with hiccups. She reports tickling in her throat and some globus sensation. She reports no significant heartburn or reflux. Procedure: Prior to the procedure, a history and physical exam was performed, and patient's medications and allergies were reviewed. The risks, benefits and alternatives of the sedation and procedure were discussed with the patient. All questions were answered and informed consent was obtained. The patient was brought to the procedure room. Patient identification and proposed procedure were verified by the physician and the nurse. The patient was placed in a left lateral decubitus position and the scope was passed under direct vision. Throughout the procedure, the patient's blood pressure, pulse, and oxygen saturations were monitored continuously. The upper GI endoscopy was accomplished without difficulty. The patient tolerated the procedure well. Findings: The scope was passed directly into the upper esophagus and advanced to the third portion of the duodenum. The post bulbar duodenum and duodenal bulb were normal with normal mucosa and conniventes. The scope was withdrawn through a normal duodenal bulb and pylorus into the stomach. There was some mild linear gastropathy of the prepyloric antrum. Biopsies were obtained. The body and fundus of the stomach were normal with some mild proximal atrophy. Upon retroflexion there was a 2 cm hiatal hernia. The scope was then withdrawn into the esophagus. There was a distal fibrotic ring. There appeared to be some mucosal fibrosis throughout the esophagus with some mild stenosis. There was a proximal esophageal web. Biopsies were taken from the distal and proximal esophagus to rule out eosinophilic or lymphocytic esophagitis. The distal fibrotic ring was approximately 7 to 8 mm diameter and this was dilated to 18 mm with a TTS hydrostatic balloon. The entire esophagus was dilated. There was shattering of the distal ring. There was some resistance at the cricopharyngeus. Impression: 1. Distal fibrotic ring (originally 7 to 8 mm diameter)?dilated to 18 mm 2. 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 Mild esophageal mucosal fibrosis and mild stenosis?biopsies taken to rule out eosinophilic or lymphocytic esophagitis 4. Small 2 cm hiatal hernia 5. Mild antral gastropathy Plan: I will follow-up the biopsies. The patient should have clinical improvement with dilation. I would encourage her to continue the MiraLAX with bulking fiber (Citrucel).
== END 2024-11-15 09:02 | disposition home or self-care (01) ==
PROVIDERS: PCP Internal Medicine; Visit Provider Internal Medicine Gastroenterology
PROC: 0DJ08ZZ Inspection of Upper Intestinal Tract, Via Natural or Artificial Opening Endoscopic (ICD-10-PCS; CPT 43239; principal; 2024-11-15 07:30)
DX: R13.10 Dysphagia, unspecified (principal); K22.2 Esophageal obstruction; R63.4 Abnormal weight loss; K31.9 Disease of stomach and duodenum, unspecified; K44.9 Diaphragmatic hernia without obstruction or gangrene; Q39.4 Esophageal web
CPT/HCPCS: 43239; 43249; C1726; J7120

== ENCOUNTER 2024-12-21 14:07 | Outpatient (CLI) | payer MEDICARE, OTHER, SELFPAY ==
--- NOTE | 2024-12-21 14:15 | CA_ITS ---
APPROVED REPORT EXAM: Comprehensive 2D, Doppler, and color-flow Echocardiogram Blackjack Pit Boss: Natalia Brown RVT Ht: 5 ft 3 in Wt: 115lbs BSA: 1.53 BP: 178/113 mmHg Indications: A-FIB,MURMUR,SOA,HTN,HLD,RBBB TDS 2D Dimensions IVSd 1.10 cm F: 0.6-1.0 LVEF (Visual) 56.30 % PWd 1.16 cm F: 0.6 - 1.0 LA Volume 38.60 mL LVDd 3.55 cm F: 3.9 - 5.3 LA Volume Index 25.23 mL/m2 (M/F) 16-34 LVDs 2.53 cm F: 2.2 - 3.5 M-Mode Dimensions LA Diam 3.28 cm (1.9-4.0) TAPSE 1.41 (<1.7) LV Diastology E Decel Time 287 (160-240 msec) E/A Ratio 0.8 Aortic Valve DAVID Index 2.19 cm2/m2 AoV Peak Trent. 148.0 (50-130 cm/s) AI PHT 1159.00 ms AO Peak GR. 8.80 mmHg AO Mean GR. 4.80 (<5 mmHg) AO VTI 33.7 (18-25 cm) DAVID (VTI) 3.44 (2.5-4.5 cm2) Mitral Valve MV E Max Trent. 72.0 (40-130 cm/s) MV A Velocity 95.0 (40-130 cm/s) E/A Ratio 0.76 MV PHT 84.0 ms Pulmonary Valve PV Peak Velocity 54.0 (50-150 cm/s) Tricuspid Valve TR P. Velocity 316.00 cm/s RAP Estimate 10.00 mmHg RVSP 50.10 mmHg Left Ventricle The left ventricle is normal size. The left ventricular systolic function is normal. The left ventricular ejection fraction is within the normal range. Proximal septal thickening is noted. There is normal LV segmental wall motion. Transmitral Doppler flow pattern suggests impaired LV relaxation. LVEF is 55%. Right Ventricle The right ventricle is normal size. The right ventricular systolic function is normal. Atria Left atrium is moderately dilated. Right atrium is mildly dilated. There is no Doppler evidence of interatrial shunt. Aortic Valve The aortic valve is mildly thickened. Moderate aortic regurgitation. There is no aortic valvular stenosis. Mitral Valve The mitral valve leaflets are mildly thickened. Mild mitral regurgitation. No evidence of mitral valve stenosis. Tricuspid Valve The tricuspid valve leaflets are thin and pliable. Mild tricuspid regurgitation. RVSP is 40 mmHg + RA pressure. Pulmonic Valve The pulmonary valve is normal in structure. Trace pulmonic regurgitation. Great Vessels The aortic root is normal in size. The IVC is not well-visualized. Pericardium There is no pericardial effusion. Other Information Study Quality: Technically Difficult Conclusion Technically difficult study due to poor acoustic windows. Normal biventricular systolic function. Biatrial dilation. Moderate AI. Mild MR, mild TR. Elevated RVSP 40 mmHg + RA pressure. Electronically signed by : Dionna Tomlinson MD 12/31/2024 12:24:48
== END 2024-12-21 23:59 | disposition home or self-care (01) ==
LOC: RT 14:07
PROVIDERS: PCP Internal Medicine; Visit Provider Physician Assistant
DX: I35.1 Nonrheumatic aortic (valve) insufficiency (principal); I34.0 Nonrheumatic mitral (valve) insufficiency; I48.0 Paroxysmal atrial fibrillation
CPT/HCPCS: 93306

== ENCOUNTER 2025-03-12 12:20 | Outpatient (CLI) | payer MEDICARE, OTHER, SELFPAY ==
[2025-03-12 16:15] LABS: Blood Urea Nitrogen 16 mg/dl (7-17); Calcium 9.1 mg/dl (8.4-10.2); Carbon Dioxide 29 mmol/L (22.0-30.0); Chloride 107 mmol/L (98-107); Estimated Glomerular Filt Rate 60 ml/min (>60); GFR (African American) 73 ML/MIN (>60); Glucose 74 mg/dl (74-100); Sodium 142 mmol/L (136-145)
[2025-03-12 16:40] LABS: Thyroid Stimulating Hormone 0.68 uIU/mL (0.465-4.68)
== END 2025-03-12 23:59 | disposition home or self-care (01) ==
LOC: LAB.DROPOF 03-13 14:05
PROVIDERS: PCP Internal Medicine; Visit Provider Internal Medicine
DX: E03.9 Hypothyroidism, unspecified (principal); I10 Essential (primary) hypertension
CPT/HCPCS: 80048; 84443

== ENCOUNTER 2025-07-24 12:10 | Outpatient (CLI) | payer MEDICARE, OTHER, SELFPAY ==
[2025-07-24 17:18] LABS: Hematocrit 43.0 % (37.0-47.0); Hemoglobin 13.9 g/dL (12.2-16.2); Immature Granulocytes % 0.1 %; Mean Corpuscular HGB Conc 32.3 g/dL (31.8-35.4); Mean Corpuscular Hemoglobin 33.0 pg (27.0-31.2); Mean Corpuscular Volume 102.1 fl (81-99); Nucleated Red Blood Cells % 0 %; Platelet Count 123 K/mm3 (142-424); Red Blood Count 4.21 M/mm3 (4.20-5.40); Red Cell Distribution Width-SD 56.2 fL; White Blood Count 7.4 K/mm3 (4.8-10.8)
[2025-07-24 20:01] LABS: Albumin Level 4.1 g/dl (3.5-5.0); Chloride 103 mmol/L (98-107); Potassium 3.7 mmoL/L (3.5-5.1); Sodium 142 mmol/L (136-145)
[2025-07-24 20:03] LABS: Alanine Aminotransferase 64 U/L (12-78); Anion Gap 21.7 mEq/L (5-15); Aspartate Amino Transferase 75 U/L (14-36); Carbon Dioxide 21 mmol/L (22.0-30.0)
[2025-07-24 20:04] LABS: Albumin/Globulin Ratio 1.4 (1.1-1.8); Alkaline Phosphatase 199 U/L (38-126); Bilirubin,Total 1.0 mg/dl (0.2-1.3); Calcium 9.5 mg/dl (8.4-10.2); Cholesterol 175 mg/dl (140-200); Globulin 2.9 g/dL (1.3-3.2); Glucose 82 mg/dl (74-100); HDL Cholesterol 78 mg/dl (40-60); Total Protein,Serum 7.0 g/dl (6.3-8.2); Triglycerides 92 mg/dl (30-150)
[2025-07-24 20:16] LABS: Blood Urea Nitrogen 19 mg/dl (7-17); Creatinine,Serum 1.10 mg/dl (0.52-1.04); Estimated Glomerular Filt Rate 48 ml/min (>60); GFR (African American) 58 ML/MIN (>60)
--- OUTSIDE RECORDS SUMMARY | 2025-07-26 00:39 | XMS_ITS | Referral Summary ---
Author Organization [employer] ([place], [place], [place], [place]) Address [address] [place] [address] Care Team Providers Care Doughnut Machine Operator Name Role Phone Almas Park MD Primary Care Provider [phone] Encounters Date Type Department Care Team Description 07/18/2025 Refill [facility] - [address] [address] Ivan Dorado MD Edema, unspecified type from Last 3 Months Allergies Active Allergy Reactions Criticality Noted Date Comments Morphine Medium 05/02/2024 HEART BEATS SLOW Medications ALPRAZolam (NIRAVAM) 0.25 MG dissolvable tablet Take 1 tablet (0.25 mg total) by mouth every night as needed. Active bisoprolol (ZEBETA) 10 MG tablet Take 1 tablet (10 mg total) by mouth daily. Active cyclobenzaprine (FLEXERIL) 5 MG tablet Take 1 tablet (5 mg total) by mouth every night as needed. Active ezetimibe (ZETIA) 10 mg tablet Take 1 tablet (10 mg total) by mouth daily. Active furosemide (LASIX) 20 MG tablet Take 1 tablet (20 mg total) by mouth daily as needed. Active galcanezumab-gnl m (EMGALITY) 120 mg/mL pen Inject 1 mL (120 mg total) subcutaneously every 30 (thirty) days. Active hydroCHLOROthiaz deandre (HYDRODIURIL) 12.5 MG tablet Take 1 tablet (12.5 mg total) by mouth daily. Active levothyroxine (SYNTHROID, LEVOTHROID) 112 MCG tablet Take 1 tablet (112 mcg total) by mouth Every morning on an empty stomach. Active rosuvastatin (CRESTOR) 20 MG tablet Take 1 tablet (20 mg total) by mouth daily. Active famotidine (PEPCID) 20 MG tablet Take 1 tablet (20 mg total) by mouth 2 (two) times daily. Active HYDROcodone-acet aminophen (NORCO 5-325) 5-325 mg per tablet Take 1 tablet by mouth as needed for pain. Active potassium chloride (KLOR-CON-M) 10 MEQ CR tablet Take 1 tablet (10 mEq total) by mouth as needed. Active spironolactone (ALDACTONE) 50 MG tabletIndication s:Edema, unspecified type Take 1 tablet (50 mg total) by mouth daily. 90 tablet 3 05/07/20 24 Active rivaroxaban (XARELTO) 15 mg tabletIndication s:Paroxysmal atrial fibrillation (HCC) Take 1 tablet (15 mg total) by mouth daily with dinner. 90 tablet 3 05/07/20 24 Active flecainide (TAMBOCOR) 100 MG tabletIndication s:Edema, unspecified type Take 1 tablet (100 mg total) by mouth 2 (two) times daily. 180 tablet 3 05/07/20 24 Active hydrALAZINE (APRESOLINE) 25 MG tabletIndication s:Hypertension, unspecified type Take 1 tablet (25 mg total) by mouth every 3 (three) hours as needed (for BP greater than 160 systolic) Look-alike/Sound -alike medication. 100 tablet 05/07/20 24 Active Active Problems Problem Noted Date Diagnosed Date Hypertension 05/02/2024 Atrial fibrillation 05/02/2024 Migraine 05/02/2024 Hyperlipidemia 05/02/2024 Right bundle branch block 05/02/2024 Aortic valve regurgitation 05/02/2024 Mitral valve regurgitation 05/02/2024 Social History Tobacco Use Types Packs/Day Years Used Date Smoking Tobacco: Never Smokeless Tobacco: Never Tobacco Cessation:Counseling Given: Not Answered Alcohol Use Standard Drinks/Week Comments Yes 0 (1 standard drink = 0.6 oz pur e alcohol) occasional caffeine use Food Insecurity Answer Date Recorded Food run out past 12 months Not on file 05/2024 Food did not last past 12 months Not on file 04/23/2024 Employment Answer Date Recorded Help finding and keeping a job Not on file 0 04/23/2024 Family and Community Support Answer Anil e Recorded Help with Day to Day Activities Not on file 04/23/2024 Feeling Lonely or Isolated Not on file 04/23 Educational Attainment Answer Date Nasir rded Speak language other than Hong Konger at home Not on file 04/23/2024 Want help with school or training Not on file 04/23/2024 Substance Use Answer Date Recorded Used prescription meds for non-medical reasons N ot on file 04/23/2024 Used illegal drugs past 12 months Not on file 04/23/2024 Comments Unknown Sex and Gender Information Value Date Recorded Sex Assigned at Not on file Legal Sex Female 3:04 PM CDT Gender Identity Not on file Sexual Orientation Not on file Last Filed Vital Signs Vital Sign Reading Time Taken Comments Blood Pressure 110/70 05/07/2024 9:45 AM EDT Pulse 63 05/07/2024 9:45 AM EDT Temperature - - Respiratory Rate 18 05/07/2024 9:45 AM EDT Oxygen Saturation 95% 05/07/2024 9:45 AM EDT Inhaled Oxygen Concentration - - Weight 49 kg (108 lb) 05/07/2024 9:45 AM EDT Height 154.9 cm (5' 1 ) 05/07/2024 9:45 AM EDT Body Mass Index 20.41 05/07/2024 9:45 AM EDT Plan of Treatment Not on file Insurance MEDICARE PART A B [facility] [employer] [place] [id number] Care Teams Doughnut Machine Operator Relationship Specialty Start Date End Date Almas Park MD [address] [place] [address] [place] [id number] PCP - General General Internal Medicine 04/23/24
--- OUTSIDE RECORDS SUMMARY | 2025-07-26 00:39 | XMS_ITS | Encounter Summary ---
Author Organization [employer] ([place], [place], [place], [place]) Address [address] [place] [address] Care Team Providers Care Body Component Engineer Name Role Phone Almas Park MD Primary Care Provider [phone] Reason for Visit * Reason Comments Medication Refill Encounter Details Date Type Department Care Team (Late st Contact Info) Description 07/18/2025 Refill [facility] - [address] [place] [address] Ivan Dorado MD [address] [facility] [address] [place] [address] Edema, unspecified type Social History Tobacco Use Types Packs/Day Years Used Date Smoking Tobacco: Never Smokeless Tobacco: Never Alcohol Use Standard Drinks/Week Comments Yes 0 [...] Date Nasir rded Speak language other than Georgian at home Not on file 04/23/2024 Want [...] on file Sexual Orientation Not on file documented as of this encounter Plan of Treatment Not on file documented as of this encounter Visit Diagnoses Diagnosis Edema, unspecified type documented in this encounter Care Teams Body Component Engineer Relationship Specialty Start Date End Date Almas Park MD [address] [place] [address] [place] [phone] PCP - General General Internal Medicine 04/23/24 documented as of this encounter
--- OUTSIDE RECORDS SUMMARY | 2025-07-26 00:39 | XMS_ITS | Clinical Summary ---
Author Organization Healthcare Address [address] [place] [address] Care Team Providers Care Maintenance Painter Name Role Phone Almas Park MD Primary Care Provider [phone] Social History Tobacco Use Types Packs/Day Years Used Date Smoking Tobacco: Never Assessed Comments Unknown Sex and Gender Information Value Date Recorded Sex Assigned at Not on file Legal Sex Female 5:57 PM EDT Gender Identity Not on file Sexual Orientation Not on file Plan of Treatment Health Maintenance Due Date Last Done Comments [facility]-Bone Density Scan 1944 [facility]-Depression Screening 1944 [facility]-/Child/Adol SDOH Screenings 1944 [facility]- SDOH Screenings 1962 [facility]-Adult SDOH Screenings 1962 [facility]-DTaP,Tdap,and Td Vaccines (1 - Tdap) 1963 [facility]-Pneumococcal Vaccine: 50+ Years (1 of 1 - PCV) 1994 07/17/2015 [facility]-Zoster Vaccines (1 of 2) 1994 [facility]-RSV Vaccine: 60+ Years or (1 - 1-dose 75+ series) 2019 [id number] Vaccine ( season) 2025 08/03/2022, 08/31/2021, 12/24/2020, Additional history exists [facility]-Influenza Vaccine (#1) 06/17/202508/27, 09/23/2020, 07/30/2020, Additional history exists HPV Vaccines Aged Out No longer eligi ble based on patient's age to complete this topic [facility]-HIB Vaccines Aged Out No longer e ligible based on patient's age to complete this topic [facility]-Hepatitis A Vaccines Aged Out No longer eligible based on patient's age to complete this topic [facility]-IPV Vaccines Aged Out No longer e ligible based on patient's age to complete this topic [facility]-Rotavirus Vaccines Aged Out No lo nger eligible based on patient's age to complete this topic Insurance MEDICARE Care Teams Maintenance Painter Relationship Specialty Start Date End Date Almas Park MD [address] [facility] [address] [place] [address] PCP - General 02/27/21
--- OUTSIDE RECORDS SUMMARY | 2025-07-26 00:39 | XMS_ITS | Clinical Summary ---
Author Organization [employer] ([place], [place], [place], [place]) Address [address] [place] [address] Care Team Providers Care Abattoir Supervisor Name Role Phone Almas Park MD Primary Care Provider [phone] Allergies Active Allergy Reactions Criticality Noted Date [...] valve regurgitation 05/02/2024 Mitral valve regurgitation 05/02/2024 Encounters Date Type Department Care Team Description 07/18/2025 [facility]iology - [address] [address] Ivan Dorado MD Edema, unspecified type from Last 3 Months Family History Medical History Relation Name Comments Cancer Other Heart attack Other Relation Name Status Comments Other Social History Tobacco Use Types Packs/Day Years [...] Date Nasir rded Speak language other than [place]orese at home Not on file 04/23/2024 Want [...] 05/07/2024 9:45 AM EDT Plan of Treatment Health Maintenance Due Date Last Done Comments DXA SCAN 1944 Depression Screening (12+) 1956 DTAP/TDAP/TD VACCINES (1 - Tdap) 1963 Pneumococcal 50+ years (1 of 2 - PCV) 1963 Shingles Vaccine (Zoster) (1 of 2) 1994 Medicare Initial AWV [id number] 01/16/2015 Respiratory Syncytial Virus (RSV) Adult or (1 - 1-dose 75+ series) 2019 Falls Risk Screening 10/17/2024 Tobacco Cessation Counseling and Screening (12+) 05/07/2025 05/07/2024 COVID-19 VACCINE ( - 2024-2 6 season) 2025 11/11/2023, 08/03/2022, 08/31/2021, Additional history exists Influenza Vaccine (#1) 2025 08/27/2022, 2019 Insurance MEDICARE PART A B [employer] TAM Bhagat [id number] Care Teams Abattoir Supervisor Relationship Specialty Start Date End Date Almas Park MD [address] [place] [address] [place] [id number] PCP - General General Internal Medicine 04/23/24
== END 2025-07-24 23:59 ==
LOC: LAB.DROPOF 07-26 00:37
PROVIDERS: PCP Internal Medicine; Visit Provider Internal Medicine
DX: E78.5 Hyperlipidemia, unspecified (principal); I10 Essential (primary) hypertension; B35.1 Tinea unguium
CPT/HCPCS: 80053; 80061; 85025

== ENCOUNTER 2025-09-09 11:40 | Outpatient (CLI) | payer MEDICARE, OTHER, SELFPAY ==
[2025-09-09 16:17] LABS: Albumin Level 4.3 g/dl (3.5-5.0); Chloride 102 mmol/L (98-107); Sodium 141 mmol/L (136-145)
[2025-09-09 16:18] LABS: Potassium 3.8 mmoL/L (3.5-5.1)
[2025-09-09 16:20] LABS: Alanine Aminotransferase 46 U/L (12-78); Albumin/Globulin Ratio 1.6 (1.1-1.8); Alkaline Phosphatase 180 U/L (38-126); Anion Gap 17.8 mEq/L (5-15); Aspartate Amino Transferase 68 U/L (14-36); Bilirubin,Total 0.9 mg/dl (0.2-1.3); Blood Urea Nitrogen 15 mg/dl (7-17); Carbon Dioxide 25 mmol/L (22.0-30.0); Creatinine,Serum 0.80 mg/dl (0.52-1.04); Estimated Glomerular Filt Rate 69 ml/min (>60); GFR (African American) 83 ML/MIN (>60); Globulin 2.7 g/dL (1.3-3.2); Glucose 92 mg/dl (74-100); Total Protein,Serum 7.0 g/dl (6.3-8.2)
[2025-09-09 16:21] LABS: Calcium 9.1 mg/dl (8.4-10.2)
[2025-09-09 16:41] LABS: Hematocrit 42.0 % (37.0-47.0); Hemoglobin 13.6 g/dL (12.2-16.2); Immature Granulocytes % 0.2 %; Mean Corpuscular HGB Conc 32.4 g/dL (31.8-35.4); Mean Corpuscular Hemoglobin 33.6 pg (27.0-31.2); Mean Corpuscular Volume 103.7 fl (81-99); Nucleated Red Blood Cells % 0 %; Platelet Count 137 K/mm3 (142-424); Red Blood Count 4.05 M/mm3 (4.20-5.40); Red Cell Distribution Width-SD 54.8 fL; White Blood Count 4.6 K/mm3 (4.8-10.8)
--- OUTSIDE RECORDS SUMMARY | 2025-09-10 10:29 | XMS_ITS | Clinical Summary ---
Author Organization [employer] ([place], [place], [place], [place], [place]) Address [address] [place] [address] Care Team Providers Care Skein Washer Name Role Phone Almas Park MD Primary Care Provider [phone] Allergies Active Allergy Reactions Criticality Noted Date [...] valve regurgitation 05/02/2024 Mitral valve regurgitation 05/02/2024 Family History Medical History Relation Name Comments [...] Date Nasir rded Speak language other than Uzbek at home Not on file 04/23/2024 Want [...] Influenza Vaccine (#1) 2025 08/27/2022, 2019 Insurance [employer] [place] [id number] MEDICARE PART A B [email or web address] TAM Bhagat [id number] Care Teams Skein Washer Relationship Specialty Start Date End Date Almas Park MD [address] [place] [address] [place] [id number] PCP - General General Internal Medicine 04/23/24
--- OUTSIDE RECORDS SUMMARY | 2025-09-10 10:29 | XMS_ITS | Clinical Summary ---
Author Organization Healthcare Address [address] [place] [address] Care Team Providers Care Strategic Planner Name Role Phone Almas Park MD Primary Care Provider [phone] Social History Tobacco Use Types Packs/Day Years [...] or (1 - 1-dose 75+ series) 2019 [id number] Vaccine ( season) 2025 08/03/2022, 08/31/2021, 12/24/2020, [...] complete this topic Insurance MEDICARE Care Teams Strategic Planner Relationship Specialty Start Date End Date Almas Park MD [address] [facility] [address] [place] [id number] PCP - General 02/27/21
--- OUTSIDE RECORDS SUMMARY | 2025-09-10 10:29 | XMS_ITS | Referral Summary ---
Author Organization [employer] ([place], [place], [place], [place], [place]) Address [address] [place] [address] Care Team Providers Care Gas Burner Operator Name Role Phone Almas Park MD Primary Care Provider [phone] Allergies Active Allergy Reactions Criticality Noted Date [...] Date Nasir rded Speak language other than Slovak at home Not on file 04/23/2024 Want [...] on file Insurance MEDICARE PART A B [employer] INSURANCE [employer] T[place] Bhag[place] [id number] Care Teams Gas Burner Operator Relationship Specialty Start Date End Date Almas Park MD [address] [place] [address] [place] [id number] PCP - General General Internal Medicine 04/23/24
== END 2025-09-09 23:59 ==
LOC: LAB.DROPOF 09-10 10:26
PROVIDERS: PCP Internal Medicine; Visit Provider Internal Medicine
DX: B35.1 Tinea unguium (principal); I10 Essential (primary) hypertension
CPT/HCPCS: 80053; 85025